=== PATIENT | female | born 1995 | race Caucasian/White ===

== ENCOUNTER 2016-12-16 17:47 | Emergency (ER) | payer MEDICAID, OTHER ==
[2016-12-16 18:13] VITALS: BP 112/50
[2016-12-16] MEDS ORDERED: Ondansetron INJ* 2 MG/ML VIAL IV ONE (18:20)
[2016-12-16] MEDS ORDERED: NS 0.9% 1000 ML* 1,000 ML IV ONE (18:20)
[2016-12-16 18:59] LABS: Hematocrit 38 % (35-47); Hemoglobin 12.8 g/dl (12.0-16.0); Mean Corpuscular HGB Conc 34 g/dl (31-36); Mean Corpuscular Hemoglobin 30 pg (27-31); Mean Corpuscular Volume 88 fL (80-97); Mean Platelet Volume 9 um3 (7.4-10.4); Red Blood Count 4.27 10^6/ul (4.0-5.4); Red Cell Distribution Width 14 % (10.5-15); White Blood Count 9.3 10^3/ul (3.5-10.8)
[2016-12-16 19:16] LABS: Albumin 3.9 g/dL (3.2-5.2); BUN/Creatinine Ratio 10.5 (8-20); EGFR African American 173.9 (>60); EGFR Non-African American 135.2 (>60); Globulin 2.8 g/dL (2-4); Potassium 3.2 mmol/L (3.5-5.0); Total Bilirubin 0.3 mg/dL (0.2-1.0); Total Protein 6.7 g/dL (6.4-8.9)
[2016-12-16 20:31] LABS: Urine Bacteria Absent (Absent); Urine Bilirubin Negative (Negative); Urine Glucose Negative (Negative); Urine Nitrite Negative (Negative)
--- NOTE | 2016-12-16 22:27 | RAD ---
Indication: abdominal cramping. COMPARISON: There are no prior studies available for comparison. TECHNIQUE: Multiple real-time transvaginal images of the pelvis were obtained. FINDINGS: The uterus is retroverted and normal in size. This exam demonstrates an early intrauterine . A fetus and yolk sac are visualized. The heart rate was 181 beats per minute. The crown-rump length measured 2.6 cm corresponding to an estimated gestational age of 9 weeks 3 days. The mean sac diameter measured 3.3 cm corresponding to an estimate gestational age of 8 weeks 5 days. The right ovary measured 2.6 x 2.2 x 2.0 cm. The left ovary measured 2.1 x 1.2 x 2.5 cm. There is vascular flow within both ovaries. There is a small complex cyst present within the right ovary measuring 1.5 x 1.0 cm in size. No free intraperitoneal fluid is seen. IMPRESSION: EARLY INTRAUTERINE WITH AN ESTIMATED GESTATIONAL AGE OF 9 WEEKS 3 DAYS BY CROWN-RUMP LENGTH.
[2016-12-16] MEDS ORDERED: Potassium Chlor TAB* 20 MEQ TAB.ER PO ONE (22:30)
--- NOTE | 2016-12-16 22:43 | ED ---
Mateo Tai Billy, scribed for Will Bender MD on 12/16/16 at 1815 . Abdominal Pain/Female - HPI Summary HPI Summary: Patient is a 21 year-old female coming to [facility] presenting with constant abdominal cramping and intermittent N/V for one week. Denies any vaginal bleeding or discharge. She is 9 weeks , A0. Patient reports 5x episodes of emesis today and saw blood in the vomit. She states that she had a Mirena IUD in place, but she reports that it was not visualized on ultrasound done yesterday at [facility]. - History of Current Complaint Chief Complaint: EDAbdPain Stated Complaint: ABD PAIN,VOMITING BLOOD Time Seen by Provider: 12/16/16 18:12 Hx Obtained From: Patient Onset/Duration: Gradual Onset, Lasting Days, Still Present Timing: Constant Severity Initially: Moderate Severity Currently: Moderate Pain Intensity: 6 Pain Scale Used: 0-10 Numeric Radiates: No Aggravating Factor(s): Nothing Alleviating Factor(s): Nothing Associated Signs and Symptoms: Positive: Nausea, Vomiting. Negative: Vaginal Bleeding, Vaginal Discharge Allergies/Adverse Reactions: Allergies Allergy/AdvReac Type Severity Reaction Status Date / Time No Known Allergies Allergy Verified 08/11/15 20:40 PMH/Surg Hx/FS Hx/Imm Hx Endocrine/Hematology History: Denies: Hx Diabetes Cardiovascular History: Denies: Hx Hypertension Infectious Disease History: No Infectious Disease History: Denies: Traveled Outside the [place] in Last 30 Days - Family History Known Family History: Negative: Cardiac Disease, Hypertension, Diabetes - Social History Alcohol Use: None Substance Use Type: Reports: None Substance Use Comment - Amount & Last Used: none noted by pt or noted upon admission Smoking Status (MU): Never Smoked Tobacco Have You Smoked in the Last Year: No Review of Systems Negative: Fever Positive: Abdominal Pain, Vomiting, Nausea Negative: discharge All Other Systems Reviewed And Are Negative: Yes Physical Exam - Summary Physical Exam Summary: VITAL SIGNS: Reviewed. GENERAL: Patient is a well developed and nourished female who is lying comfortable in the stretcher. Patient is not in any acute respiratory distress. HEAD AND FACE: Normocephalic and atraumatic. EYES: PERRLA, EOMI x 2, No injected conjunctiva. EARS: Hearing grossly intact. Ear canals and tympanic membranes are WNL. MOUTH: Oropharynx within normal limits. NECK: Supple, trachea is midline, no adenopathy, no JVD. CHEST: Symmetric, no tenderness at palpation LUNGS: Clear to auscultation bilaterally. No wheezing or crackles. CVS: RRR,, S1 and S2 present, no murmurs or gallops appreciated. ABDOMEN: Soft, non-tender. No signs of distention. Positive bowel sounds. No rebound no guarding, and no masses palpated. No abdominal bruit or pulsations. EXTREMITIES: FROM in all major joints, no edema, no cyanosis or clubbing. NEURO: Alert and oriented x 3. No acute neurological deficits. Speech is normal. SKIN: Dry and warm Triage Information Reviewed: Yes Vital Signs On Initial Exam: Initial Vitals Temp Pulse Resp BP Pulse Ox 99.7 F 77 18 112/50 98 12/16/16 18:11 12/16/16 18:11 12/16/16 18:11 12/16/16 18:11 12/16/16 18:11 Vital Signs Reviewed: Yes Diagnostics - Vital Signs Vital Signs Temp Pulse Resp BP Pulse Ox 12/16/16 18:11 99.7 F 77 18 112/50 98 - Laboratory Lab Results: Lab Results 12/16/16 12/16/16 12/16/16 Range/Units 18:45 18:45 18:45 WBC 9.3 (3.5-10.8) 10^3/ul RBC 4.27 (4.0-5.4) 10^6/ul Hgb 12.8 (12.0-16.0) g/dl Hct 38 (35-47) % MCV 88 (80-97) fL MCH 30 (27-31) pg MCHC 34 (31-36) g/dl RDW 14 (10.5-15) % Plt Count 201 (150-450) 10^3/ul MPV 9 (7.4-10.4) um3 Neut % (Auto) 75.3 (38-83) % Lymph % (Auto) 15.0 L (25-47) % [place] % (Auto) 8.6 (1-9) % Eos % (Auto) 0.7 (0-6) % Baso % (Auto) 0.4 (0-2) % Absolute Neuts (auto) 7.0 (1.5-7.7) 10^3/ul Absolute Lymphs (auto) 1.4 (1.0-4.8) 10^3/ul Absolute Monos (auto) 0.8 (0-0.8) 10^3/ul Absolute Eos (auto) 0.1 (0-0.6) 10^3/ul Absolute Basos (auto) 0 (0-0.2) 10^3/ul Absolute Nucleated RBC 0 10^3/ul Nucleated RBC % 0 Sodium 134 (133-145) mmol/L Potassium 3.2 L (3.5-5.0) mmol/L Chloride 105 (101-111) mmol/L Carbon Dioxide 22 (22-32) mmol/L Anion Gap 7 (2-11) mmol/L BUN 6 (6-24) mg/dL Creatinine 0.57 (0.51-0.95) mg/dL Est GFR ( Amer) 173.9 (>60) Est GFR (Non-Af Amer) 135.2 (>60) BUN/Creatinine Ratio 10.5 (8-20) Glucose 85 (70-100) mg/dL Calcium 9.0 (8.6-10.3) mg/dL Total Bilirubin 0.30 (0.2-1.0) mg/dL AST 14 (13-39) U/L ALT 14 (7-52) U/L Alkaline Phosphatase 37 (34-104) U/L C-Reactive Protein 4.00 (< 5.00) mg/L Total Protein 6.7 (6.4-8.9) g/dL Albumin 3.9 (3.2-5.2) g/dL Globulin 2.8 (2-4) g/dL Albumin/Globulin Ratio 1.4 (1-3) Amylase 47 (29-103) U/L Lipase 24 (11.0-82.0) U/L Beta HCG, Quant 14092.00 mIU/mL Urine Color Urine Appearance Urine pH (5-9) Ur Specific [place] (1.010-1.030) Urine Protein (Negative) Urine Ketones (Negative) Urine Blood (Negative) Urine Nitrate (Negative) Urine Bilirubin (Negative) Urine Urobilinogen (Negative) Ur Leukocyte Esterase (Negative) Urine WBC (Auto) (Absent) Urine RBC (Auto) (Absent) Ur Squamous Epith Cells (Absent) Urine Bacteria (Absent) Urine Glucose (Negative) Blood Type A Positive 12/16/16 Range/Units 20:12 WBC (3.5-10.8) 10^3/ul RBC (4.0-5.4) 10^6/ul Hgb (12.0-16.0) g/dl Hct (35-47) % MCV (80-97) fL MCH (27-31) pg MCHC (31-36) g/dl RDW (10.5-15) % Plt Count (150-450) 10^3/ul MPV (7.4-10.4) um3 Neut % (Auto) (38-83) % Lymph % (Auto) (25-47) % [place] % (Auto) (1-9) % Eos % (Auto) (0-6) % Baso % (Auto) (0-2) % Absolute Neuts (auto) (1.5-7.7) 10^3/ul Absolute Lymphs (auto) (1.0-4.8) 10^3/ul Absolute Monos (auto) (0-0.8) 10^3/ul Absolute Eos (auto) (0-0.6) 10^3/ul Absolute Basos (auto) (0-0.2) 10^3/ul Absolute Nucleated RBC 10^3/ul Nucleated RBC % Sodium (133-145) mmol/L Potassium (3.5-5.0) mmol/L Chloride (101-111) mmol/L Carbon Dioxide (22-32) mmol/L Anion Gap (2-11) mmol/L BUN (6-24) mg/dL Creatinine (0.51-0.95) mg/dL Est GFR ( Amer) (>60) Est GFR (Non-Af Amer) (>60) BUN/Creatinine Ratio (8-20) Glucose (70-100) mg/dL Calcium (8.6-10.3) mg/dL Total Bilirubin (0.2-1.0) mg/dL AST (13-39) U/L ALT (7-52) U/L Alkaline Phosphatase (34-104) U/L C-Reactive Protein (< 5.00) mg/L Total Protein (6.4-8.9) g/dL Albumin (3.2-5.2) g/dL Globulin (2-4) g/dL Albumin/Globulin Ratio (1-3) Amylase (29-103) U/L Lipase (11.0-82.0) U/L Beta HCG, Quant mIU/mL Urine Color Yellow Urine Appearance Clear Urine pH 6.0 (5-9) Ur Specific [place] 1.015 (1.010-1.030) Urine Protein Negative (Negative) Urine Ketones 2+ H (Negative) Urine Blood Negative (Negative) Urine Nitrate Negative (Negative) Urine Bilirubin Negative (Negative) Urine Urobilinogen Negative (Negative) Ur Leukocyte Esterase Trace H (Negative) Urine WBC (Auto) Trace(0-5/hpf) (Absent) Urine RBC (Auto) Trace(0-2/hpf) (Absent) Ur Squamous Epith Cells Present H (Absent) Urine Bacteria Absent (Absent) Urine Glucose Negative (Negative) Blood Type Result Diagrams: 12/16/16 18:45 12/16/16 18:45 Lab Statement: Any lab studies that have been ordered have been reviewed, and results considered in the medical decision making process. - Ultrasound No standard instances Ultrasound Interpretation Completed By: Radiologist - US: EARLY INTRAUTERINE WITH AN ESTIMATED GESTATIONAL AGE OF 9 WEEKS 3 DAYS BY CROWN-RUMP LENGTH. Abdominal Pain Fem Course/Dx - Course Course Of Treatment: Patient is a 21 year-old female coming to [facility] presenting with constant abdominal cramping and intermittent N/V for one week. Denies any vaginal bleeding or discharge. She is 9 weeks , A0. Patient reports 5x episodes of emesis today and saw blood in the vomit. She states that she had a Mirena IUD in place, but she reports that it was not visualized on ultrasound done yesterday at [facility]. Bloodwork WNL except for potassium of 3.2. The patient was given potassium chloride. We were not able to obtain results from U/S at [facility] therfore I decided to do an U/S today. US reports early intrauterine at 9 weeks and 3 days. Patient declined pelvic exam. In the ER course, the patient was given IV fluids and Zofran for N/ V. After these meds, the sx resolved. Pt tolerates PO. Therefore she will be d/ c home to f/u with PCP and [facility]. - Diagnoses Differential Diagnosis: Positive: Constipation, Ectopic , , Urinary Tract Infection Provider Diagnoses: Nausea and vomiting during Discharge - Discharge Plan Condition: Stable Disposition: HOME Prescriptions: Doxylamine/Pyridoxine(NF) [Diclegis (NF)] 1 tab PO BID PRN #20 tab PRN Reason: Vomiting Patient Education Materials: Nausea and Vomiting in (ED) Referrals: No Primary Care Phys,NOPCP [Primary Care Provider] - The documentation as recorded by the Mateo archer Billy accurately reflects the service I personally performed and the decisions made by me, Will Bender MD.
== END 2016-12-16 23:29 | disposition home or self-care (01) ==
LOC: ED 17:47
DX: O21.0 Mild hyperemesis gravidarum (principal); Z3A.09 9 weeks gestation of pregnancy
CPT/HCPCS: 36415; 76801; 80053; 81003; 81015; 82150; 83690; 84702; 85025; 86140; 86900; 86901; 87086; 96360; 96374; 99282; A9270-GY; J2405

== ENCOUNTER 2017-01-24 21:24 | Emergency (ER) | payer MEDICAID, OTHER ==
[2017-01-24] MEDS ORDERED: NS 0.9% 1000 ML* 1,000 ML IV ONE (21:32)
[2017-01-24] MEDS ORDERED: Acetaminophen TAB* 325 MG PO ONE (21:32)
[2017-01-24 22:06] LABS: Hematocrit 35 % (35-47); Hemoglobin 12.1 g/dl (12.0-16.0); Mean Corpuscular HGB Conc 35 g/dl (31-36); Mean Corpuscular Hemoglobin 31 pg (27-31); Mean Corpuscular Volume 90 fL (80-97); Mean Platelet Volume 9 um3 (7.4-10.4); Red Blood Count 3.88 10^6/ul (4.0-5.4); Red Cell Distribution Width 15 % (10.5-15); White Blood Count 13.1 10^3/ul (3.5-10.8)
[2017-01-24 22:19] LABS: Albumin 3.5 g/dL (3.2-5.2); BUN/Creatinine Ratio 10.8 (8-20); Calcium 8.9 mg/dL (8.6-10.3); EGFR African American 149.4 (>60); EGFR Non-African American 116.2 (>60); Globulin 3.1 g/dL (2-4); Potassium 3.4 mmol/L (3.5-5.0); Total Bilirubin 0.2 mg/dL (0.2-1.0); Total Protein 6.6 g/dL (6.4-8.9)
[2017-01-25 00:22] LABS: Urine Bilirubin Negative (Negative); Urine Glucose Negative (Negative); Urine Nitrite Negative (Negative)
[2017-01-25 00:29] VITALS: BP 132/67
--- NOTE | 2017-01-25 07:58 | RAD ---
INDICATION: Bleeding and pelvic cramping Comparison: Similar pelvic ultrasound dated December 16, 2016 that yielded a gestational age of 9 weeks and 3 days Multiple transabdominal real time images of the gravid uterus were obtained. This exam demonstrates a single intrauterine in a variable presentation. heart and limb motion were noted. The heart rate was 147 beats per minute. The placenta was located anterior. At the anterior margin of the junction of the placenta and uterine wall there is a focal hypoechoic area with vascularity. According to the business area director note this area was reduced towards the end of the examination compared to the earlier portion. There is no placenta previa. The amniotic fluid volume appeared to be within normal limits. Biparietal diameter (cm) 2.93 which corresponds to a gestational age of 15 weeks and 3 days. Head circumference (cm) 11.38 which corresponds to a gestational age of 15 weeks and 4 days. abdominal circumference(cm) 9.25 which corresponds to a gestational age of 15 weeks and 3 days. femur length (cm) 1.75 which corresponds to a gestational age of 15 weeks and 2 days. The composite estimated gestational age was 15 weeks and 3 days. The estimated weight at this time is 121 grams +/- 18 grams. IMPRESSION: 1. Single live intrauterine gestation with composite growth parameters yielding an average gestational age of 15 weeks and 3 days. 2. At the anterior margin of the placenta there is a vascular and hypoechoic area that, according to the business area director note, reduced in size in the course of the ultrasound examination indicating a focal area of uterine contraction as opposed to placental abruption. The latter is not totally excluded and close clinical and sonographic follow-up is advised.
--- NOTE | 2017-01-25 16:52 | ED ---
- HPI Summary HPI Summary: Patient is a 15 week female BECKY who arrives to ED with CC of light vaginal bleeding since this morning. She is concerned of a threatened and would like an US. Patient notes to "spotting" up to soaking through a pad. She is with AB1 and has never had this with her previous pregnancies. She c/o of no tenderness around the abdomen except for light cramping earlier today. Denies fever, other vaginal discharge, chest pressure or SOB. Patient notes small clots of what looks like tissue as well as BRB. Denies back pain or urinary symptoms. Patient stable on arrival. blood type A+. She has not established on OBGYN yet, but last US 2 weeks ago showed viable IUP. - History of Current Complaint Chief Complaint: EDOBProblems Stated Complaint: ABD PAIN/BLEEDING/15 WKS PREG Time Seen by Provider: 01/24/17 21:28 Hx Obtained From: Patient Chief Complaint: Concern for Embryonic Dem, Concern for Demise, Vaginal Bleeding Onset/Duration: Started Hours Ago Timing: Intermittent Severity: Moderate Current Severity: Mild Pain Intensity: 1 Location of Pain: None Character: None Aggravating Factors: Nothing, Other: Associated Signs and Symptoms: Positive: Negative - Assessment SAB: 1 IEA: 0 Hx Hysterectomy: No - Risk Factors Ectopic Risk Factor: Negative Ovarian Torsion Risk Factor: Reproductive Age - Additional Pertinent History Maternal Blood Type and Rh: A Positive - Allergies/Home Medications Allergies/Adverse Reactions: Allergies Allergy/AdvReac Type Severity Reaction Status Date / Time No Known Allergies Allergy Verified 08/11/15 20:40 PMH/Surg Hx/FS Hx/Imm Hx Previously Healthy: Yes Endocrine/Hematology History: Denies: Hx Diabetes Cardiovascular History: Denies: Hx Hypertension Infectious Disease History: No Infectious Disease History: Denies: Traveled Outside the [place] in Last 30 Days - Family History Known Family History: Negative: Cardiac Disease, Hypertension, Diabetes - Social History Occupation: Unemployed Lives: With Family Alcohol Use: None Hx Substance Use: No Substance Use Type: Reports: None Substance Use Comment - Amount & Last Used: none noted by pt or noted upon admission Hx Tobacco Use: No Smoking Status (MU): Never Smoked Tobacco Have You Smoked in the Last Year: No Review of Systems Constitutional: Negative Eyes: Negative Cardiovascular: Negative Respiratory: Negative Positive: Abdominal Pain - light cramping now dissipated Positive: no symptoms reported, see HPI, discharge - vaginal bleeding Musculoskeletal: Negative Neurological: Negative Positive: Anxious All Other Systems Reviewed And Are Negative: Yes Physical Exam - Physical Exam Triage Information Reviewed: Yes Vital Signs Reviewed: Yes Appearance: Positive: Well-Appearing, No Pain Distress, Well-Nourished Skin: Positive: Warm, Skin Color Reflects Adequate Perfusion Head/Face: Positive: Normal Head/Face Inspection Eyes: Positive: EOMI, Conjunctiva Clear Neck: Positive: Supple, No Lymphadenopathy Respiratory/Lung Sounds: Positive: Clear to Auscultation Cardiovascular: Positive: Normal Abdomen Description: Positive: Nontender, Soft Bowel Sounds: Positive: Present Musculoskeletal: Positive: Normal, Strength/ROM Intact Psychiatric: Positive: Normal AVPU Assessment: Alert - Vaginal Assessment Presentation Comment: unable to reach cervix Procedures - Ultrasound Ultrasound: normal Diagnostics - Vital Signs Vital Signs Temp Pulse Resp BP Pulse Ox 01/25/17 00:27 99.1 F 92 18 132/67 01/24/17 23:00 87 20 105/67 98 01/24/17 21:41 99.7 F 85 22 116/93 99 - Laboratory Lab Results: Lab Results 01/24/17 01/24/17 01/24/17 Range/Units 21:55 21:55 21:55 WBC 13.1 H (3.5-10.8) 10^3/ul RBC 3.88 L (4.0-5.4) 10^6/ul Hgb 12.1 (12.0-16.0) g/dl Hct 35 (35-47) % MCV 90 (80-97) fL MCH 31 (27-31) pg MCHC 35 (31-36) g/dl RDW 15 (10.5-15) % Plt Count 201 (150-450) 10^3/ul MPV 9 (7.4-10.4) um3 Neut % (Auto) 79.0 (38-83) % Lymph % (Auto) 13.3 L (25-47) % [place] % (Auto) 6.2 (1-9) % Eos % (Auto) 0.7 (0-6) % Baso % (Auto) 0.8 (0-2) % Absolute Neuts (auto) 10.3 H (1.5-7.7) 10^3/ul Absolute Lymphs (auto) 1.7 (1.0-4.8) 10^3/ul Absolute Monos (auto) 0.8 (0-0.8) 10^3/ul Absolute Eos (auto) 0.1 (0-0.6) 10^3/ul Absolute Basos (auto) 0.1 (0-0.2) 10^3/ul Absolute Nucleated RBC 0.01 10^3/ul Nucleated RBC % 0 Sodium 133 (133-145) mmol/L Potassium 3.4 L (3.5-5.0) mmol/L Chloride 104 (101-111) mmol/L Carbon Dioxide 25 (22-32) mmol/L Anion Gap 4 (2-11) mmol/L BUN 7 (6-24) mg/dL Creatinine 0.65 (0.51-0.95) mg/dL Est GFR ( Amer) 149.4 (>60) Est GFR (Non-Af Amer) 116.2 (>60) BUN/Creatinine Ratio 10.8 (8-20) Glucose 93 (70-100) mg/dL Calcium 8.9 (8.6-10.3) mg/dL Total Bilirubin 0.20 (0.2-1.0) mg/dL AST 12 L (13-39) U/L ALT 17 (7-52) U/L Alkaline Phosphatase 56 (34-104) U/L Total Protein 6.6 (6.4-8.9) g/dL Albumin 3.5 (3.2-5.2) g/dL Globulin 3.1 (2-4) g/dL Albumin/Globulin Ratio 1.1 (1-3) Beta HCG, Quant 38927.00 mIU/mL Urine Color Urine Appearance Urine pH (5-9) Ur Specific [place] (1.010-1.030) Urine Protein (Negative) Urine Ketones (Negative) Urine Blood (Negative) Urine Nitrate (Negative) Urine Bilirubin (Negative) Urine Urobilinogen (Negative) Ur Leukocyte Esterase (Negative) Urine Glucose (Negative) Blood Type A Positive Antibody Screen Negative 01/24/17 Range/Units 23:33 WBC (3.5-10.8) 10^3/ul RBC (4.0-5.4) 10^6/ul Hgb (12.0-16.0) g/dl Hct (35-47) % MCV (80-97) fL MCH (27-31) pg MCHC (31-36) g/dl RDW (10.5-15) % Plt Count (150-450) 10^3/ul MPV (7.4-10.4) um3 Neut % (Auto) (38-83) % Lymph % (Auto) (25-47) % [place] % (Auto) (1-9) % Eos % (Auto) (0-6) % Baso % (Auto) (0-2) % Absolute Neuts (auto) (1.5-7.7) 10^3/ul Absolute Lymphs (auto) (1.0-4.8) 10^3/ul Absolute Monos (auto) (0-0.8) 10^3/ul Absolute Eos (auto) (0-0.6) 10^3/ul Absolute Basos (auto) (0-0.2) 10^3/ul Absolute Nucleated RBC 10^3/ul Nucleated RBC % Sodium (133-145) mmol/L Potassium (3.5-5.0) mmol/L Chloride (101-111) mmol/L Carbon Dioxide (22-32) mmol/L Anion Gap (2-11) mmol/L BUN (6-24) mg/dL Creatinine (0.51-0.95) mg/dL Est GFR ( Amer) (>60) Est GFR (Non-Af Amer) (>60) BUN/Creatinine Ratio (8-20) Glucose (70-100) mg/dL Calcium (8.6-10.3) mg/dL Total Bilirubin (0.2-1.0) mg/dL AST (13-39) U/L ALT (7-52) U/L Alkaline Phosphatase (34-104) U/L Total Protein (6.4-8.9) g/dL Albumin (3.2-5.2) g/dL Globulin (2-4) g/dL Albumin/Globulin Ratio (1-3) Beta HCG, Quant mIU/mL Urine Color Yellow Urine Appearance Clear Urine pH 7.0 (5-9) Ur Specific [place] 1.013 (1.010-1.030) Urine Protein Negative (Negative) Urine Ketones Negative (Negative) Urine Blood Negative (Negative) Urine Nitrate Negative (Negative) Urine Bilirubin Negative (Negative) Urine Urobilinogen Negative (Negative) Ur Leukocyte Esterase Negative (Negative) Urine Glucose Negative (Negative) Blood Type Antibody Screen Result Diagrams: 01/24/17 21:55 01/24/17 21:55 Lab Statement: Any lab studies that have been ordered have been reviewed, and results considered in the medical decision making process. - Ultrasound No standard instances Ultrasound Interpretation: Positive (See Comments) - IMPRESSION: 1. Single live intrauterine gestation with composite growth parameters yielding an average gestational age of 15 weeks and 3 days. 2. At the anterior margin of the placenta there is a vascular and hypoechoic area that, according to the underwriting clerks supervisor note, reduced in size in the course of the ultrasound examination indicating a focal area of uterine contraction as opposed to placental abruption. The latter is not totally excluded and close clinical and sonographic follow-up is advised. Ultrasound Interpretation Completed By: Radiologist Course/Dx - Course Course Of Treatment: Transvaginal US ordered. Impressin: IMPRESSION: 1. Single live intrauterine gestation with composite growth parameters yielding an average gestational age of 15 weeks and 3 days. Patient made aware of results. Provider educated about return precautions and discussed bleeding through 1 pad per hour as a need to be re-evaluated. Patient has appt this week at clinic for follow up. Stable upon discharge and agrees with plan. - Differential Diagnosis/HQI/PQRI: Incomplete , Missed , Threatened , Early - Diagnoses Provider Diagnoses: Vaginal bleeding in Discharge - Discharge Plan Condition: Stable Disposition: HOME Referrals: No Primary Care Phys,NOPCP [Primary Care Provider] - Additional Instructions: Follow up with your OBGYN this week. US shows gestational age 15 weeks and 3 days. If you develop fever, heavy vaginal bleeding soaking through 1 pad per hour, come back to ED.
== END 2017-01-25 00:27 | disposition home or self-care (01) ==
LOC: ED 21:24
DX: O46.92 Antepartum hemorrhage, unspecified, second trimester (principal); R10.9 Unspecified abdominal pain; F41.9 Anxiety disorder, unspecified; Z3A.15 15 weeks gestation of pregnancy
CPT/HCPCS: 36415; 76805; 80053; 81003; 84702; 85025; 86850; 86900; 86901; 99282; A9270-GY

== ENCOUNTER 2017-02-25 19:07 | Emergency (ER) | payer OTHER ==
--- NOTE | 2017-02-25 20:12 | ED ---
sharon Tai Timothy, scribed for Liang Lacy MD on 02/25/17 at 1958 . GI/ HPI - HPI Summary HPI Summary: Yesy Suarez is a 21 yo female presenting to [facility] with spotting, clots, dizziness, and 8/10 chest pain since 0900 this morning, increasing throughout the day in intensity. She is 20 weeks . Her MHx includes . - History of Current Complaint Chief Complaint: EDChestPainROMI Time Seen by Provider: 02/25/17 19:54 Stated Complaint: CHEST PAIN/ 20 WEEK PREG/BLEEDING Hx Obtained From: Patient Onset/Duration: Started Hours Ago, Still Present Timing: Constant Severity: Moderate Current Severity: Moderate Vaginal Bleeding Description: Bright Red Pain Intensity: 8 Location of Pain: Diffuse Associated Signs and Symptoms: Positive: Chest Pain, Other: - dizziness Additional Signs & Symptoms: Positive: Vaginal Bleeding - with clots - Allergy/Home Medications Allergies/Adverse Reactions: Allergies Allergy/AdvReac Type Severity Reaction Status Date / Time No Known Allergies Allergy Verified 02/25/17 19:23 PMH/Surg Hx/FS Hx/Imm Hx Endocrine/Hematology History: Denies: Hx Diabetes Cardiovascular History: Denies: Hx Hypertension - Immunization History Date of Tetanus Vaccine: utd Date of Influenza Vaccine: utd Infectious Disease History: No Infectious Disease History: Denies: Traveled Outside the [place] in Last 30 Days - Family History Known Family History: Negative: Cardiac Disease, Hypertension, Diabetes, Blood Disorder - Social History Alcohol Use: Rare Hx Substance Use: No Substance Use Type: Reports: None Substance Use Comment - Amount & Last Used: none noted by pt or noted upon admission Hx Tobacco Use: No Smoking Status (MU): Never Smoked Tobacco Have You Smoked in the Last Year: No Review of Systems Constitutional: Negative Eyes: Negative ENT: Negative Positive: Chest Pain Respiratory: Negative Gastrointestinal: Negative Genitourinary: Other - vaginal bleeding with clots Musculoskeletal: Negative Skin: Negative Neurological: Other - dizziness Psychological: Normal All Other Systems Reviewed And Are Negative: Yes Physical Exam Triage Information Reviewed: Yes Vital Signs On Initial Exam: Initial Vitals Temp Pulse Resp BP Pulse Ox 99.3 F 71 16 115/61 98 02/25/17 19:09 02/25/17 19:09 02/25/17 19:09 02/25/17 19:09 02/25/17 19:09 Vital Signs Reviewed: Yes Appearance: Positive: Well-Appearing, No Pain Distress Skin: Positive: Warm Head/Face: Positive: Normal Head/Face Inspection Eyes: Positive: RAULITO ENT: Positive: Normal ENT inspection Neck: Positive: Supple Respiratory/Lung Sounds: Positive: Clear to Auscultation, Breath Sounds Present Cardiovascular: Positive: RRR Abdomen Description: Positive: Nontender, Soft Bowel Sounds: Positive: Present Pelvic Exam: Positive: speculum exam normal. Negative: blood - cx closed Musculoskeletal: Positive: Strength/ROM Intact - [place] Coma Scale Coma Scale Total: 15 Diagnostics - Vital Signs Vital Signs Temp Pulse Resp BP Pulse Ox 02/25/17 19:09 99.3 F 71 16 115/61 98 - Laboratory Result Diagrams: 02/25/17 19:50 Lab Statement: Any lab studies that have been ordered have been reviewed, and results considered in the medical decision making process. - EKG 1933 Cardiac Rate: NL - 72 BPM EKG Interpretation: NSR @ 72 BPM, normal EKG. Re-Evaluation - Re-Evaluation First Eval Re-Evaluation Time: 21:04 Change: Improved Comment: Pt is informed of results of her lab work, and is agreeable with current course of treatment. GIGU Course/Dx - Course Assessment/Plan: Yesy Olsen is a 21 yo female presenting to [facility] with vaginal bleeding, dizziness, and chest pain starting today. She is 20 weeks . Her EKG was normal. Afte clinical examination and review of her EKG and lab work, she will be discharged with abdominal pain and with appropriate instructions. - Diagnoses Provider Diagnoses: Abdominal pain, - Additional Visit Information Is Visit Related: Yes Discharge - Discharge Plan Condition: Stable Disposition: HOME Patient Education Materials: Acute Abdominal Pain (ED), (ED) Referrals: No Primary Care Phys,NOPCP [Primary Care Provider] - [facility] [Provider Group] - 2 Days Additional Instructions: Please follow up with your [facility] regarding your visit to the emergency department today. Return to the emergency department with any new or recurring symptoms. The documentation as recorded by the sharon archer Timothy accurately reflects the service I personally performed and the decisions made by me, Liang Lacy MD.
[2017-02-25 20:21] LABS: Hematocrit 34 % (35-47); Hemoglobin 11.6 g/dl (12.0-16.0); Mean Corpuscular HGB Conc 34 g/dl (31-36); Mean Corpuscular Hemoglobin 32 pg (27-31); Mean Corpuscular Volume 92 fL (80-97); Mean Platelet Volume 9 um3 (7.4-10.4); Red Cell Distribution Width 15 % (10.5-15); White Blood Count 15.4 10^3/ul (3.5-10.8)
[2017-02-25 20:26] LABS: Urine Bacteria Absent (Absent); Urine Bilirubin Negative (Negative); Urine Glucose Negative (Negative); Urine Nitrite Negative (Negative)
[2017-02-25 21:47] VITALS: BP 111/66
== END 2017-02-25 21:47 | disposition home or self-care (01) ==
LOC: ED 19:07
DX: O26.892 Other specified pregnancy related conditions, second trimester (principal); Z3A.20 20 weeks gestation of pregnancy; R07.9 Chest pain, unspecified
CPT/HCPCS: 36415; 81003; 81015; 84702; 85025; 87086; 93005; 99282

== ENCOUNTER 2017-03-12 15:50 | Emergency (ER) | payer OTHER ==
[2017-03-12 18:15] LABS: Hematocrit 38 % (35-47); Hemoglobin 12.7 g/dl (12.0-16.0); Mean Corpuscular HGB Conc 34 g/dl (31-36); Mean Corpuscular Hemoglobin 32 pg (27-31); Mean Corpuscular Volume 94 fL (80-97); Mean Platelet Volume 9 um3 (7.4-10.4); Red Blood Count 4.02 10^6/ul (4.0-5.4); Red Cell Distribution Width 14 % (10.5-15); White Blood Count 18.3 10^3/ul (3.5-10.8)
[2017-03-12 18:29] LABS: Urine Bacteria Absent (Absent); Urine Bilirubin Negative (Negative); Urine Glucose Negative (Negative); Urine Nitrite Negative (Negative)
[2017-03-12] MEDS ORDERED: Ondansetron INJ* 2 MG/ML VIAL ONE (18:52)
[2017-03-12] MEDS ORDERED: Ondansetron INJ* 2 MG/ML VIAL IV ONE (18:53)
[2017-03-12] MEDS ORDERED: NS 0.9% 1000 ML* 2,000 ML IV ONE (18:53)
[2017-03-12 19:57] LABS: Albumin 3.7 g/dL (3.2-5.2); BUN/Creatinine Ratio 13.8 (8-20); Calcium 9.1 mg/dL (8.6-10.3); EGFR African American 149.4 (>60); EGFR Non-African American 116.2 (>60); Globulin 3.7 g/dL (2-4); Potassium 3.3 mmol/L (3.5-5.0); Total Bilirubin 0.4 mg/dL (0.2-1.0); Total Protein 7.4 g/dL (6.4-8.9)
[2017-03-12 21:14] VITALS: BP 115/60
--- NOTE | 2017-03-12 21:58 | ED ---
Anthony Tai Aidan, scribed for Valdez Choe MD on 03/12/17 at 1958 . - HPI Summary HPI Summary: 21 y/o female presents to the ED with a complaint of acute, constant, moderate ( 7/10) LLQ abdominal pain and episodes of vomiting over the past 2 days. Additionally, she has nausea and is not tolerating water. Pt is 22 weeks . She mentioned lessened movements since last night as well. This is her second and the baby is due on July 13. - History of Current Complaint Chief Complaint: EDNauseaVomitDiarrh Stated Complaint: 22WKS PREG/DIZZY, VOMITING Time Seen by Provider: 03/12/17 18:38 Hx Obtained From: Patient Chief Complaint: Other: - LLQ pain, vomiting, lessened movement, nausea, not tollerating water Onset/Duration: Started Days Ago, Still Present Timing: Constant - LLQ pain, Intermittent - vomiting Severity: Moderate Current Severity: Moderate Pain Intensity: 7 Location of Pain: Left Side - LLQ abdomen Character: Other: - undescribed Aggravating Factors: Other: - unknown, however, she is unable to tollerate water Alleviating Factors: Other: - unknown Associated Signs and Symptoms: Positive: Nausea, Vomiting, Other: - decreased movement since lsat night, nausea, vomiting, LLQ abd pain - Assessment Hx : 3 Hx Para: 1 SAB: 1 IEA: 0 Hx Hysterectomy: No - Additional Pertinent History Maternal Blood Type and Rh: A Positive - Allergies/Home Medications Allergies/Adverse Reactions: Allergies Allergy/AdvReac Type Severity Reaction Status Date / Time No Known Allergies Allergy Verified 03/12/17 18:39 PMH/Surg Hx/FS Hx/Imm Hx Endocrine/Hematology History: Denies: Hx Diabetes Cardiovascular History: Denies: Hx Hypertension - Immunization History Date of Tetanus Vaccine: utd Date of Influenza Vaccine: utd Infectious Disease History: No Infectious Disease History: Denies: Traveled Outside the [place] in Last 30 Days - Family History Known Family History: Negative: Cardiac Disease, Hypertension, Diabetes, Blood Disorder - Social History Occupation: Employed Full-time Lives: Alone Alcohol Use: Rare Hx Substance Use: No Substance Use Type: Reports: None Substance Use Comment - Amount & Last Used: none noted by pt or noted upon admission Hx Tobacco Use: No Smoking Status (MU): Never Smoked Tobacco Have You Smoked in the Last Year: No Review of Systems Constitutional: Negative Eyes: Negative ENT: Negative Cardiovascular: Negative Respiratory: Negative Positive: Abdominal Pain, Vomiting, Nausea. Negative: Diarrhea Genitourinary: Negative Musculoskeletal: Negative Skin: Negative Neurological: Negative Psychological: Normal All Other Systems Reviewed And Are Negative: Yes Physical Exam - Physical Exam Triage Information Reviewed: Yes Vital Signs On Initial Exam: Temp Pulse Resp BP SpO2 FiO2 98.3 F 74 18 100/41 99 03/12/17 18:37 03/12/17 19:30 03/12/17 18:37 03/12/17 19:30 03/12/17 19:30 Vital Signs Reviewed: Yes Appearance: Positive: Well-Appearing, No Pain Distress Skin: Positive: Warm, Skin Color Reflects Adequate Perfusion, Dry Head/Face: Positive: Normal Head/Face Inspection Eyes: Positive: Normal ENT: Positive: Normal ENT inspection Neck: Positive: Supple, Nontender Respiratory/Lung Sounds: Positive: Clear to Auscultation, Breath Sounds Present Cardiovascular: Positive: RRR Abdomen Description: Positive: Nontender, Soft Bowel Sounds: Positive: Present Musculoskeletal: Positive: Normal Neurological: Positive: Normal Psychiatric: Positive: Affect/Mood Appropriate - Vaginal Assessment Presentation Comment: unable to reach cervix Diagnostics - Vital Signs Vital Signs Temp Pulse Resp BP Pulse Ox 03/12/17 19:30 74 100/41 99 03/12/17 19:28 66 100 03/12/17 19:26 85/69 03/12/17 18:37 98.3 F 73 18 124/48 99 03/12/17 18:09 97.5 F 93 17 105/54 100 03/12/17 16:59 97.7 F 78 16 102/42 100 03/12/17 15:52 98.3 F 97 20 111/57 100 - Laboratory Lab Results: Lab Results 03/12/17 03/12/17 03/12/17 Range/Units 17:57 17:57 17:57 WBC 18.3 H (3.5-10.8) 10^3/ul RBC 4.02 (4.0-5.4) 10^6/ul Hgb 12.7 (12.0-16.0) g/dl Hct 38 (35-47) % MCV 94 (80-97) fL MCH 32 H (27-31) pg MCHC 34 (31-36) g/dl RDW 14 (10.5-15) % Plt Count 234 (150-450) 10^3/ul MPV 9 (7.4-10.4) um3 Neut % (Auto) 78.7 (38-83) % Lymph % (Auto) 15.6 L (25-47) % Major % (Auto) 4.5 (1-9) % Eos % (Auto) 0.6 (0-6) % Baso % (Auto) 0.6 (0-2) % Absolute Neuts (auto) 14.4 H (1.5-7.7) 10^3/ul Absolute Lymphs (auto) 2.9 (1.0-4.8) 10^3/ul Absolute Monos (auto) 0.8 (0-0.8) 10^3/ul Absolute Eos (auto) 0.1 (0-0.6) 10^3/ul Absolute Basos (auto) 0.1 (0-0.2) 10^3/ul Absolute Nucleated RBC 0.02 10^3/ul Nucleated RBC % 0.1 Lactic Acid 0.5 (0.5-2.0) mmol/L Urine Color Yellow Urine Appearance Clear Urine pH 5.0 (5-9) Ur Specific [place] 1.027 (1.010-1.030) Urine Protein Negative (Negative) Urine Ketones 1+ H (Negative) Urine Blood Negative (Negative) Urine Nitrate Negative (Negative) Urine Bilirubin Negative (Negative) Urine Urobilinogen Negative (Negative) Ur Leukocyte Esterase Trace H (Negative) Urine WBC (Auto) Trace(0-5/hpf) (Absent) Urine RBC (Auto) Trace(0-2/hpf) (Absent) Ur Squamous Epith Cells Present H (Absent) Urine Bacteria Absent (Absent) Hyaline Casts Present H (Absent) Urine Glucose Negative (Negative) Urine Ascorbic Acid * H (Negative) Result Diagrams: 03/12/17 17:57 03/12/17 17:57 Lab Statement: Any lab studies that have been ordered have been reviewed, and results considered in the medical decision making process. Course/Dx - Course Course Of Treatment: This is a 21 y/o female who is 22 weeks presenting with LLQ abdominal pain, nausea, and vomiting. She was rehydrated here in the ED and her nausea was treated with zofran. FHT's were good and she was feeling the baby move again. She had a mild leukocytosis that I attribute to and vomiting. - Diagnoses Provider Diagnoses: Nausea & vomiting Discharge - Discharge Plan Condition: Stable Disposition: HOME Discharge Disposition Comment: Please follow up with your primary care physician within 3 days. Prescriptions: Ondansetron ODT TAB* [Zofran Odt TAB*] 4 mg PO Q6H PRN #20 tab.odt PRN Reason: Nausea/Vomiting Patient Education Materials: Nausea and Vomiting in (ED) Referrals: No Primary Care Phys,NOPCP [Primary Care Provider] - The documentation as recorded by the Anthony archer Aidan accurately reflects the service I personally performed and the decisions made by me, Valdez Choe MD.
== END 2017-03-12 21:12 | disposition home or self-care (01) ==
LOC: ED 15:50
DX: R10.32 Left lower quadrant pain (principal); R11.2 Nausea with vomiting, unspecified
CPT/HCPCS: 36415; 80053; 81003; 81015; 83605; 85025; 86703; 87086; 96374; 96375; 99283; J2405

== ENCOUNTER 2017-07-08 07:38 | Inpatient (IN) | payer OTHER ==
[2017-07-08 08:58] LABS: Hematocrit 35 % (35-47); Hemoglobin 11.8 g/dl (12.0-16.0); Mean Corpuscular HGB Conc 34 g/dl (31-36); Mean Corpuscular Hemoglobin 31 pg (27-31); Mean Corpuscular Volume 91 fL (80-97); Mean Platelet Volume 9 um3 (7.4-10.4); Red Blood Count 3.82 10^6/ul (4.0-5.4); Red Cell Distribution Width 15 % (10.5-15); White Blood Count 16.1 10^3/ul (3.5-10.8)
[2017-07-08] MEDS ORDERED: Oxytocin in LR* 20 UNITS/1,000 ML BAG IVPB SCH ×2 (09:00→19:00)
[2017-07-08 09:02] LABS: Add Diff/Slide Review? Slide Review Added; Comments Flag Yes
[2017-07-08 09:52] LABS: Immature Granulocytes 2 % (0-9); Metamyelocytes % 1 % (0-2); Neutrophil % 69 % (38-83)
[2017-07-08] MEDS ORDERED: OBEPIDURAL* 250 ML ONE (17:00)
[2017-07-08] MEDS ORDERED: Sodium Citrate/Citric Acid* 15 ML UDC PO PRN (17:32)
[2017-07-08] MEDS ORDERED: Phenylephrine IV* 40 MCG/ML 10 ML SYRINGE IV PUSH PRN ×2 (17:32)
[2017-07-08] MEDS ORDERED: OBEPIDURAL* 250 ML EPIDURAL SCH (18:00)
[2017-07-08] MEDS ORDERED: Dibucaine 1% 28.35 GM TUBE PR PRN (18:01)
[2017-07-08] MEDS ORDERED: Glycerin ADULT SUPP PR PRN (18:01)
[2017-07-08] MEDS ORDERED: Witch Hazel PAD* JAR TOPICAL PRN (18:01)
[2017-07-08] MEDS ORDERED: Ammonia Inhalant* 1 EA AMP ONE (19:47)
[2017-07-08] MEDS ORDERED: Simethicone CHEW TAB* 80 MG PO SCH (21:00)
[2017-07-08] MEDS: Docusate CAP* 100 MG PO SCH (22:06)
[2017-07-08] MEDS: Ibuprofen TAB* 600 MG PO PRN (22:07)
[2017-07-09] MEDS: Acetaminophen TAB* 325 MG PO PRN ×2 (00:17→20:13)
[2017-07-09] MEDS: Ibuprofen TAB* 600 MG PO PRN ×2 (03:47→16:31)
[2017-07-09] MEDS ORDERED: Ferrous Gluconate TAB* 324 MG TAB PO SCH (09:00)
[2017-07-09 10:18] LABS: Add Diff/Slide Review? Slide Review Added; Comments Flag Yes; Hematocrit 35 % (35-47); Hemoglobin 11.8 g/dl (12.0-16.0); Mean Corpuscular HGB Conc 34 g/dl (31-36); Mean Corpuscular Hemoglobin 31 pg (27-31); Mean Corpuscular Volume 91 fL (80-97); Mean Platelet Volume 9 um3 (7.4-10.4); Red Blood Count 3.82 10^6/ul (4.0-5.4); Red Cell Distribution Width 15 % (10.5-15)
[2017-07-09 12:07] LABS: Eosinophils % 1 % (0-6); Immature Granulocytes 2 % (0-9); Metamyelocytes % 1 % (0-2); Neutrophil % 80 % (38-83); RBC Morphology Normal (Normal)
[2017-07-09] MEDS: Docusate CAP* 100 MG PO SCH ×2 (15:05→15:06)
[2017-07-10] MEDS: Acetaminophen TAB* 325 MG PO PRN (06:56)
[2017-07-10 07:52] VITALS: BP 111/68
[2017-07-10] MEDS: Docusate CAP* 100 MG PO SCH (09:16)
== END 2017-07-10 13:48 | disposition home or self-care (01) | DRG 560 ==
LOC: MCHOBOUT 07:38 → MCHOB 07:50
PROVIDERS: ADMIT Midwife; ATTEND Midwife
PROC: 10E0XZZ Delivery of Products of Conception, External Approach (ICD-10-PCS; principal; 2017-07-08)
PROC: 3E033VJ Introduction of Other Hormone into Peripheral Vein, Percutaneous Approach (ICD-10-PCS; 2017-07-08)
PROC: 10907ZC Drainage of Amniotic Fluid, Therapeutic from Products of Conception, Via Natural or Artificial Opening (ICD-10-PCS; 2017-07-08)
DX: O99.824 Streptococcus B carrier state complicating childbirth (principal); O69.9XX0 Labor and delivery complicated by cord complication, unspecified, not applicable or unspecified; Z3A.39 39 weeks gestation of pregnancy; Z37.0 Single live birth
CPT/HCPCS: 36415; 85025; 86703; 86850; 86900; 86901; A9270-GY; J2540

== ENCOUNTER 2017-12-28 19:33 | Emergency (ER) | payer OTHER ==
[2017-12-28] MEDS ORDERED: NS 0.9% 1000 ML* 1,000 ML IV ONE (19:47)
[2017-12-28] MEDS ORDERED: Ketorolac INJ* 30 MG/ML 1 ML VIAL IV PUSH PRN (19:47)
[2017-12-28] MEDS ORDERED: Ketorolac INJ* 60 MG/2 ML VIAL ONE (21:52)
[2017-12-28] MEDS ORDERED: Ketorolac INJ* 60 MG/2 ML VIAL IM ONE (21:59)
[2017-12-28] MEDS ORDERED: Oseltamivir CAP* 75 MG CAP PO ONE (23:16)
--- NOTE | 2017-12-28 23:21 | ED ---
Gelacio Tai Thomas, scribed for Michelle Ruiz MD on 12/28/17 at 2013 . Complex/Multi-Sys Presentation - HPI Summary HPI Summary: The patient is a 22 year old female brought in by ambulance with lower abdominal pain and dysuria that began today. The patient was diagnosed with influenza earlier today, and over the last three days she has been dealing with fever, diarrhea, and nasal discharge. She complains of vaginal bleeding, although her LMP was four weeks ago. She denies vomiting. - History Of Current Complaint Chief Complaint: EDAbdPain Time Seen by Provider: 12/28/17 19:39 Hx Obtained From: Patient Onset/Duration: Lasting Days - 3, Still Present Timing: Constant Severity Initially: Moderate Location: Pain At: - lower abd Aggravating Factor(s): Voiding Alleviating Factor(s): None Associated Signs And Symptoms: Positive: Other - Lower abd pain, dysuria, fever , diarrhea, nasal discharge, vaginal bleeding; NEGATIVE: vomiting - Allergies/Home Medications Allergies/Adverse Reactions: Allergies Allergy/AdvReac Type Severity Reaction Status Date / Time No Known Allergies Allergy Verified 12/28/17 21:59 PMH/Surg Hx/FS Hx/Imm Hx Sensory History: Denies: Hx Legally Blind EENT History: Denies: Hx Deafness Infectious Disease History: No Infectious Disease History: Denies: Traveled Outside the [place] in Last 30 Days - Family History Known Family History: Positive: Other - Patient denies relevant FHx - Social History Alcohol Use: Occasionally Hx Substance Use: No Substance Use Type: Reports: None Hx Tobacco Use: Yes Smoking Status (MU): Current Every Day Smoker Review of Systems Positive: Fever Positive: Nasal Discharge Positive: Abdominal Pain - lower, Diarrhea. Negative: Vomiting Positive: dysuria, other - Vaginal bleeding All Other Systems Reviewed And Are Negative: Yes Physical Exam - Summary Physical Exam Summary: VITAL SIGNS: Reviewed. GENERAL:~Patient is a well-developed and nourished FEMALE who is lying comfortable in the stretcher. Patient is not in any acute respiratory distress. HEAD AND FACE: No signs of trauma. No ecchymosis, hematomas or skull depressions. No sinus tenderness. EYES: PERRLA, EOMI x 2, No injected conjunctiva, no nystagmus. EARS: Hearing grossly intact. Ear canals and tympanic membranes are within normal limits. MOUTH: Oropharynx within normal limits. NECK: Supple, trachea is midline, no adenopathy, no JVD, no carotid bruit, no c- spine tenderness, neck with full ROM. CHEST: Symmetric, no tenderness at palpation LUNGS: Clear to auscultation bilaterally. No wheezing or crackles. CVS: Regular rate and rhythm, S1 and S2 present, no murmurs or gallops appreciated. ABDOMEN: Soft. RLQ and LLQ tenderness. No signs of distention. No rebound no guarding, and no masses palpated. Bowel sounds are normal. BACK: Left CVA tenderness. EXTREMITIES: FROM in all major joints, no edema, no cyanosis or clubbing. NEURO: Alert and oriented x 3. No acute neurological deficits. Speech is normal and follows commands. SKIN: Dry and warm Triage Information Reviewed: Yes Vital Signs On Initial Exam: Initial Vitals Temp Pulse Resp BP Pulse Ox 98.9 F 108 20 102/87 100 12/28/17 19:43 12/28/17 19:43 12/28/17 19:43 12/28/17 19:43 12/28/17 19:43 Vital Signs Reviewed: Yes Diagnostics - Vital Signs Vital Signs Temp Pulse Resp BP Pulse Ox 12/28/17 19:43 98.9 F 108 20 102/87 100 - Laboratory Lab Statement: Any lab studies that have been ordered have been reviewed, and results considered in the medical decision making process. Complex Multi-Symp Course/Dx Assessment/Plan: The patient is a 22 year old female brought in by ambulance with lower abdominal pain and dysuria that began today. The patient was diagnosed with influenza earlier today, and over the last three days she has been dealing with fever, diarrhea, and nasal discharge. The patient was given Toradol and IV fluids. The patient does not want to wait for bloodwork or the CT Abdomen/Pelvis, so she will be discharged home. Influenza B is positive. The patient will be discharged home with primary care follow up. - Diagnoses Provider Diagnoses: Influenza B Discharge - Discharge Plan Condition: Stable Disposition: HOME Patient Education Materials: Influenza (DC) Referrals: [facility] [place] PHYSICIAN REFERRAL [Outside] - 3 Days Additional Instructions: Follow up with your primary care physician in three days. Return to the emergency department for any new or worsening symptoms. The documentation as recorded by the Gelacio archer Thomas accurately reflects the service I personally performed and the decisions made by Joseph courtney Abdul, MD.
[2017-12-29 01:06] VITALS: BP 0/0
== END 2017-12-29 | disposition home or self-care (01) ==
LOC: EDBD → ED 19:33 → MERGE 19:33 → ED 12-29
DX: J10.1 Influenza due to other identified influenza virus with other respiratory manifestations (principal); R10.30 Lower abdominal pain, unspecified; F17.200 Nicotine dependence, unspecified, uncomplicated
CPT/HCPCS: 87040; 87502; 96372; 96374; 99283; A9270-GY; J1885

== ENCOUNTER 2018-07-29 12:35 | Emergency (ER) | payer SELFPAY ==
[2018-07-29] MEDS ORDERED: NS 0.9% 1000 ML* 1,000 ML IV ONE (12:58)
[2018-07-29] MEDS ORDERED: Al Hydrox/Mg Hydrox/Simet LIQ* 30 ML UDC PO ONE (12:58)
[2018-07-29] MEDS ORDERED: Ondansetron INJ* 2 MG/ML VIAL IV ONE (12:58)
[2018-07-29] MEDS ORDERED: Lidocaine 2% VISCOUS* 15 ML UDC PO ONE (12:58)
[2018-07-29] MEDS ORDERED: Pantoprazole IV* 40 MG IV ONE (12:58)
--- NOTE | 2018-07-29 13:38 | ED ---
HPI Febrile Illness - HPI Summary HPI Summary: 22-year-old female presents with fever for the past week. She admits to a cough and sore throat. She denies any chest pain or shortness of breath. She states she has been taking ibuprofen every hour. She states that today she started to vomit and she admits to blood in her vomit. She denies any blood in her stool or dark tarry stool. She denies any history of GI bleeds. She admits to nausea and vomiting. She admits to decreased appetite. no medical conditions. no one else sick. was seen at urgent care and had negative strept there. - History of Current Complaint Chief Complaint: EDGeneral Time Seen by Provider: 07/29/18 12:40 Pain Intensity: 8 - Allergy/Home Medications Allergies/Adverse Reactions: Allergies Allergy/AdvReac Type Severity Reaction Status Date / Time No Known Allergies Allergy Verified 06/26/17 16:08 PMH/Surg Hx/FS Hx/Imm Hx Endocrine/Hematology History: Denies: Hx Diabetes Cardiovascular History: Denies: Hx Hypertension Sensory History: Denies: Hx Legally Blind, Hx Deafness Opthamlomology History: Denies: Hx Legally Blind - Immunization History Date of Tetanus Vaccine: utd Date of Influenza Vaccine: utd Immunizations Up to Date: Yes Infectious Disease History: No Infectious Disease History: Denies: Traveled Outside the [place] in Last 30 Days - Family History Known Family History: Positive: Other - Patient denies relevant FHx Negative: Cardiac Disease, Hypertension, Diabetes, Blood Disorder - Social History Alcohol Use: Occasionally Alcohol Amount: 1-2x per month Hx Substance Use: No Substance Use Type: Reports: Marijuana Substance Use Comment - Amount & Last Used: occasionally when drinking. Hx Tobacco Use: Yes Smoking Status (MU): Current Every Day Smoker Have You Smoked in the Last Year: No Review of Systems Positive: Fever Positive: Sore Throat Negative: Chest Pain Positive: Cough. Negative: Shortness Of Breath Positive: Abdominal Pain, Vomiting, Diarrhea, Nausea All Other Systems Reviewed And Are Negative: Yes Physical Exam Triage Information Reviewed: Yes Vital Signs On Initial Exam: Initial Vitals Temp Pulse Resp BP Pulse Ox 100.5 F 98 20 137/75 100 07/29/18 12:45 07/29/18 12:45 07/29/18 12:45 07/29/18 12:45 07/29/18 12:45 Vital Signs Reviewed: Yes Appearance: Positive: Well-Appearing Skin: Positive: Warm, Dry Head/Face: Positive: Normal Head/Face Inspection Eyes: Positive: Normal, EOMI, RAULITO, Conjunctiva Clear ENT: Positive: Normal ENT inspection, Pharyngeal erythema, TMs normal, Tonsillar swelling, Uvula midline, Other - soft palate symmetric. Negative: Tonsillar exudate, Trismus, Muffled voice Neck: Positive: Supple, Nontender, No Lymphadenopathy Respiratory/Lung Sounds: Positive: Clear to Auscultation, Breath Sounds Present Cardiovascular: Positive: Normal, RRR Abdomen Description: Positive: Soft, Other: - mild epigastric pain Bowel Sounds: Positive: Present Musculoskeletal: Positive: Normal Neurological: Positive: Normal Psychiatric: Positive: Normal Diagnostics - Vital Signs Vital Signs Temp Pulse Resp BP Pulse Ox 07/29/18 12:45 100.5 F 98 20 137/75 100 - Laboratory Result Diagrams: 07/29/18 13:58 07/29/18 13:58 Lab Statement: Any lab studies that have been ordered have been reviewed, and results considered in the medical decision making process. - Radiology chest Xray Interpretation: No Acute Changes Radiology Interpretation Completed By: Radiologist Re-Evaluation - Re-Evaluation First Eval Re-Evaluation Time: 14:47 Change: Improved Comment: feeling better after fluids, gi cocktail Course/Dx - Course Course Of Treatment: 22-year-old female presents with fever for the past week. She admits to a cough and sore throat. She denies any chest pain or shortness of breath. She states she has been taking ibuprofen every hour. She states that today she started to vomit and she admits to blood in her vomit. She denies any blood in her stool or dark tarry stool. She denies any history of GI bleeds. She admits to nausea and vomiting. She admits to decreased appetite. no medical conditions. no one else sick. on exam lungs CTA. mild epigastric pain. tonsils+2. erythema noted. uvula midline soft palate symmetric. wbc 15. mono neg. lactic normal. chest xray normal. vomiting blood likely due to ibuprofen overuse. told to stop ibuprofen. will prescribe omeprazole for 14 days. will give decadron for sore throat and magic mouth wash. told to do an at home test in 4 days as level is indeterminated but is likely negative. patient understand and agrees with plan. patient wanted to leave before labs all back. will send script for potassium. - Febrile Illness Differential Diagnoses: Pneumonia, Sepsis, Viremia - Diagnoses Provider Diagnoses: Upper respiratory infection, Vomiting blood Discharge - Sign-Out/Discharge Documenting (check all that apply): Patient Departure - Discharge Plan Condition: Good Disposition: HOME Prescriptions: Benzonatate CAP* [Tessalon 100 MG CAP*] 100 mg PO TID PRN #21 cap PRN Reason: Cough Dexamethasone TAB* [Decadron TAB*] 4 mg PO DAILY #5 tab Magic Mouth Was-PINA/MAAL/LIDO* 5 ml SWISH SPIT QID #100 ml Omeprazole CAP* [Prilosec CAP* 20 MG] 20 mg PO DAILY #14 cap. Ondansetron ODT TAB* [Zofran 4 MG Odt TAB*] 4 mg PO Q6H PRN #20 tab.odt PRN Reason: Nausea Potassium Chlor TAB* [Potassium Chlor TAB 20 MEQ*] 20 meq PO BID #6 tab.er Patient Education Materials: Upper Respiratory Infection (ED) Referrals: No Primary Care Phys,NOPCP [Primary Care Provider] - Additional Instructions: take omeprazole daily for 14 days Take tessalon for cough three times a day Take decadron daily for 5 days Magic mouthwash 5ml swish and spit can use 4x a day take zofran every 6 hours as needed for nausea stop taking ibuprofen, only use Tylenol every 6 hours for fever establish care with primary Return to ED if develop any new or worsening symptoms - Billing Disposition and Condition Condition: GOOD Disposition: Home
[2018-07-29 14:41] LABS: ABS Basophils 0 10^3/ul (0-0.2); ABS Eosinophils 0.1 10^3/ul (0-0.6); ABS Lymphocytes 1.4 10^3/ul (1.0-4.8); ABS Nucleated RBC 0 10^3/ul; Eosinophil % 0.4 % (0-6); Hematocrit 35 % (35-47); Lymphocyte % 9.2 % (25-47); Mean Corpuscular HGB Conc 34 g/dl (31-36); Mean Corpuscular Hemoglobin 30 pg (27-31); Mean Corpuscular Volume 87 fL (80-97); Mean Platelet Volume 9.2 um3 (7.4-10.4); Nucleated Red Blood Cells % 0; Platelet Count 226 10^3/ul (150-450); Red Blood Count 4.01 10^6/ul (4.00-5.40); Red Cell Distribution Width 15 % (10.5-15); White Blood Count 15.5 10^3/ul (3.5-10.8)
[2018-07-29] MEDS ORDERED: Acetaminophen TAB* 325 MG PO ONE (14:49)
--- NOTE | 2018-07-29 15:05 | RAD ---
Indication: Cough, fever. 2 views of the chest including dual energy PA views demonstrate no mediastinal shift. Heart is of normal size and configuration. Lung cook are clear. IMPRESSION: No active cardiopulmonary disease is noted.
[2018-07-29 15:37] VITALS: BP 118/62
[2018-07-29 15:40] LABS: EGFR Non-African American 105.6 (>60)
== END 2018-07-29 15:36 | disposition home or self-care (01) ==
LOC: ED 12:35
DX: J06.9 Acute upper respiratory infection, unspecified (principal); K92.0 Hematemesis; F17.200 Nicotine dependence, unspecified, uncomplicated
CPT/HCPCS: 36415; 71046; 80053; 83605; 84702; 85025; 86308; 96374; 96375; 99282; A9270-GY; J2405

== ENCOUNTER → 2018-09-05 10:56 | Emergency (ER) | payer SELFPAY ==
[2018-09-05 11:05] VITALS: BP 124/72
[2018-09-05 11:42] LABS: ABS Basophils 0.1 10^3/ul (0-0.2); ABS Eosinophils 0.1 10^3/ul (0-0.6); ABS Monocytes 0.5 10^3/ul (0-0.8); ABS Neutrophils 6.2 10^3/ul (1.5-7.7); ABS Nucleated RBC 0 10^3/ul; Hematocrit 39 % (35-47); Hemoglobin 13.6 g/dl (12.0-16.0); Mean Corpuscular HGB Conc 35 g/dl (31-36); Mean Corpuscular Hemoglobin 31 pg (27-31); Mean Corpuscular Volume 88 fL (80-97); Nucleated Red Blood Cells % 0; Platelet Count 213 10^3/ul (150-450); Red Blood Count 4.43 10^6/ul (4.00-5.40); Red Cell Distribution Width 16 % (10.5-15); White Blood Count 8.9 10^3/ul (3.5-10.8)
[2018-09-05 12:01] LABS: EGFR Non-African American 89.3 (>60)
[2018-09-05 17:59] LABS: Urine Appearance Cloudy; Urine Blood 3+ (Negative); Urine Color Yellow; Urine Ketones Negative (Negative); Urine Protein Negative (Negative); Urine Red Blood Cell 1+(3-5/hpf) (Absent); Urine Specific Gravity 1.027 (1.010-1.030); Urine Urobilinogen Negative (Negative); Urine White Blood Cell 1+(6-10/hpf) (Absent)
== END | disposition left against medical advice (07) ==
LOC: ED 10:56
DX: R42 Dizziness and giddiness (principal); Z53.21 Procedure and treatment not carried out due to patient leaving prior to being seen by health care provider
CPT/HCPCS: 36415; 80048; 81003; 81015; 84702; 85025; 87086; 87491; 87591

== ENCOUNTER 2018-09-05 15:16 | Emergency (ER) | payer SELFPAY ==
[2018-09-05 17:37] VITALS: BP 114/50
--- NOTE | 2018-09-05 17:50 | RAD ---
HISTORY: right side pelvic pain COMPARISONS: None TECHNIQUE: Multiple transverse and longitudinal ultrasound images were obtained of the pelvis using grayscale, color Doppler, and spectral Doppler imaging using the endovaginal transducer. FINDINGS: UTERUS: The uterus measures 7.8 x 3.2 x 3.9 cm. The uterus is normal in shape, size, contour, and echotexture. ENDOMETRIUM: The endometrial stripe is smooth. The endometrium measures 0.3 cm in thickness. CUL-DE-SAC: There is no free fluid within the cul-de-sac. RIGHT OVARY: The right ovary measures 3.7 x 1.9 x 3.1 cm. Multiple follicles are noted. Normal arterial and venous waveforms are identifiable within the ovary on spectral Doppler imaging. LEFT OVARY: The left ovary measures 2.9 x 1.3 x 2.3 cm. Multiple follicles are noted. Normal arterial and venous waveforms are identifiable within the ovary on spectral Doppler imaging. BLADDER: The bladder is not well visualized. OTHER: None IMPRESSION: NO ACUTE SONOGRAPHIC PATHOLOGY OF THE VISUALIZED PORTION OF THE PELVIS. NO SONOGRAPHIC FEATURES OF TORSION. PLEASE NOTE THAT PARTIAL OR INTERMITTENT TORSION MAY BE SONOGRAPHICALLY NORMAL.
== END 2018-09-05 19:52 | disposition left against medical advice (07) ==
LOC: ED 15:16
DX: R10.9 Unspecified abdominal pain (principal); Z53.21 Procedure and treatment not carried out due to patient leaving prior to being seen by health care provider
CPT/HCPCS: 76830; 99282

== ENCOUNTER 2018-09-06 11:13 | Emergency (ER) | payer MEDICAID, OTHER ==
[2018-09-06] MEDS ORDERED: Ketorolac INJ* 30 MG/ML 1 ML VIAL IV ONE (11:42)
--- NOTE | 2018-09-06 11:51 | ED ---
Abdominal Pain/Female - HPI Summary HPI Summary: Patient presents with diffuse abdominal pain that is focal at times in the right lower quadrant and wraps around her Rt flank on this side. She reports this as feeling like "fireworks" (sharp?) intermittently for the constant burning. She also admits to nausea, vomiting, diarrhea which started earlier this week. She denies upper respiratory symptoms such as rhinorrhea, sneezing, coughing, chest pain, rash, ear pain, neck stiffness, headache. She admits her 3-year-old is home from school today with the same symptoms of nausea, vomiting and diarrhea. however he is with her today and drinking from a cup and asking for crackers. She denies dysuria but does report she feels like her "vagina is going to fall out" when she urinates - states she has to [place] to prevent this sensation from happening. She also admits to a new vaginal discharge with a different odor, dyspareunia and pain with tampon insertion. She has a history of BVunsure if this feels similar or not. Denies any other history of vaginal infection such as yeast, chlamydia, gonorrhea, and/or Trichomonas. She is sexually active with her partner who is the father of her children. Reports BV started when she was sexually active with him. She is unsure if he has an STD or history of. She came to the emergency department yesterday and tests were ordered however she was not seen. Her labs revealed white blood cells to be within normal limits and her test to be negative. Her renal and liver function also looked normal. U/A revealed blood, leuk's, etc. She additionally had a transvaginal ultrasound which showed follicles in her ovaries bilaterally but no jada cyst(s) or torsion. She has had the Nexplanon in her left bicep area for the past 3 months and admits she's had bloody discharge since however she's not had pelvic/abdominal pain until recent sx started. No history of GI pathology such as IBS, diverticulitis, etc. She reports she was treated for UTI 2 weeks ago and symptoms resolved. Symptoms today do not feel the same. - History of Current Complaint Chief Complaint: EDAbdPain Stated Complaint: ABD PAIN Time Seen by Provider: 09/06/18 11:16 Hx Obtained From: Patient, Family/[employer] Traffic [employer] - 3 y.o. son Pain Intensity: 8 Allergies/Adverse Reactions: Allergies Allergy/AdvReac Type Severity Reaction Status Date / Time No Known Allergies Allergy Verified 09/05/18 15:21 PMH/Surg Hx/FS Hx/Imm Hx Previously Healthy: Yes Endocrine/Hematology History: Denies: Hx Diabetes, Autoimmune Disease Cardiovascular History: Denies: Hx Hypertension GI History: Denies: Hx Crohn's Disease, Hx Diverticulosis, Hx Gall Bladder Disease, Hx Gastroesophageal Reflux Disease, Hx Gastrointestinal Bleed, Hx Irritable Bowel, Hx Ulcer History: Reports: Other Problems/Disorders - BV Denies: Hx Kidney Infection, Hx Kidney Stones Sensory History: Denies: Hx Legally Blind, Hx Deafness Opthamlomology History: Denies: Hx Legally Blind - Immunization History Date of Tetanus Vaccine: utd Date of Influenza Vaccine: utd Infectious Disease History: No Infectious Disease History: Denies: Hx Clostridium Difficile, Traveled Outside the [place] in Last 30 Days - Family History Known Family History: Positive: Other - Patient denies relevant FHx Negative: Cardiac Disease, Hypertension, Diabetes, Blood Disorder - Social History Lives: With Family Alcohol Use: Occasionally Alcohol Amount: 1-2x per month Hx Substance Use: No Substance Use Type: Reports: Marijuana Substance Use Comment - Amount & Last Used: occasionally when drinking. Hx Tobacco Use: Yes Smoking Status (MU): Current Every Day Smoker Have You Smoked in the Last Year: No Review of Systems Constitutional: Negative Negative: Fever, Chills, Fatigue Cardiovascular: Negative Negative: Chest Pain Respiratory: Negative Negative: Shortness Of Breath, Cough Positive: Abdominal Pain, Vomiting, Diarrhea, Nausea Positive: see HPI Musculoskeletal: Negative Skin: Negative Neurological: Negative Psychological: Normal All Other Systems Reviewed And Are Negative: Yes Physical Exam Triage Information Reviewed: Yes Vital Signs On Initial Exam: Initial Vitals Temp Pulse Resp BP Pulse Ox 99 F 71 16 120/63 100 09/06/18 11:14 09/06/18 11:14 09/06/18 11:14 09/06/18 11:14 09/06/18 11:14 Vital Signs Reviewed: Yes Appearance: Positive: Well-Appearing, No Pain Distress - at rest - in pain during ab exam and pelvic exam, Well-Nourished Skin: Positive: Warm, Skin Color Reflects Adequate Perfusion, Dry - no ecchymosis over ab/flanks Head/Face: Positive: Normal Head/Face Inspection Eyes: Positive: Normal, EOMI, Conjunctiva Clear - anicteric sclera ENT: Positive: Normal ENT inspection, Hearing grossly normal, Pharynx normal - mucosa moist Respiratory/Lung Sounds: Positive: Clear to Auscultation, Breath Sounds Present. Negative: Rales, Rhonchi, Wheezes Cardiovascular: Positive: Normal, RRR, S1, S2 Abdomen Description: Positive: Soft, CVA Tenderness (R) - worse, CVA Tenderness (L), Other: - TTP over LLQ, epigastric region, RLQ and RUQ - no rebounding or referred pain - suprapubic region is NTTP. Negative: Distended, Guarding, Hernia @ Bowel Sounds: Positive: Present Pelvic Exam: Positive: External Exam Normal, Blood - blood is dark in color/ scant - mixed w/ mucous - malodorous, Discharge, Tender w/ Cervical Motion, Tender Adnexa, Tender Uterus, Other - no yellow or green d/c appreciated. Negative: Cervicitis Musculoskeletal: Positive: Normal, Strength/ROM Intact Neurological: Positive: Normal, Sensory/Motor Intact, Alert, Oriented to Person Place, Time, CN Intact II-III Psychiatric: Positive: Normal Diagnostics - Vital Signs Vital Signs Temp Pulse Resp BP Pulse Ox 09/06/18 11:25 78 98 09/06/18 11:14 99 F 82 16 120/63 98 - Laboratory Result Diagrams: 09/06/18 12:03 09/06/18 12:03 Lab Statement: Any lab studies that have been ordered have been reviewed, and results considered in the medical decision making process. Abdominal Pain Fem Course/Dx - Course Course Of Treatment: Suspect PID - source not identified today but pt agrees to empiric tx of common bacterial infections that may cause this. She received ceftriaxone and zithromax here to cover gonorrhea and chlamydia. Will take flagyl as an outpt and follow-up with a phone call here if she does not hear back by the end of the week as cx's are pending. Based on labs, PE and hx, CT was not ordered today. Advised pt if sx persist or worsen despite tx plan, return to ED . Also discussed pelvic rest, STD prevention, co-tx once labs return, etc. Pt he agrees w/ plan. - Diagnoses Provider Diagnoses: PID (acute pelvic inflammatory disease) Discharge - Sign-Out/Discharge Documenting (check all that apply): Patient Departure - Discharge Plan Condition: Stable Disposition: HOME Prescriptions: metroNIDAZOLE [Flagyl] 500 mg PO Q12HR #14 tablet Patient Education Materials: Pelvic Inflammatory Disease (ED) Referrals: [facility] [Outside] Additional Instructions: You appear to have an infection causing inflammation and pain in your pelvic region. You were treated with 2 antibiotics today to cover both gonorrhea and chlamydia. No further treatment should be required for these potential infections and you will receive a phone call in 2 days if your cultures reveal positive findings for gonorrhea and/or chlamydia. If they are positive, you will need follow-up to have retesting and to talk to your partner(s) about treatment to prevent continuation of spread of infection back and forth. Additionally, you were treated for bacterial vaginosis and an antibiotic was sent to your pharmacy. Please complete as directed. This culture will return in a couple days as well. It is important that you follow-up with [facility] in 2-3 days to review your results, see if your symptoms are improving, guide you through additional testing/treatment if needed, etc Call today to schedule an appointment. If you feel worse in the meantime, return to the ED - Billing Disposition and Condition Condition: STABLE Disposition: Home
[2018-09-06] MEDS ORDERED: NS 0.9% 1000 ML* 1,000 ML IV SCH (12:00)
[2018-09-06 12:10] LABS: Hematocrit 37 % (35-47); Hemoglobin 12.6 g/dl (12.0-16.0); Mean Corpuscular HGB Conc 34 g/dl (31-36); Mean Corpuscular Hemoglobin 30 pg (27-31); Mean Corpuscular Volume 89 fL (80-97); Mean Platelet Volume 8.5 um3 (7.4-10.4); Platelet Count 206 10^3/ul (150-450); Red Blood Count 4.17 10^6/ul (4.00-5.40); Red Cell Distribution Width 15 % (10.5-15); White Blood Count 9.7 10^3/ul (3.5-10.8)
[2018-09-06 12:24] LABS: INR 1.13 (0.77-1.02)
[2018-09-06 12:29] LABS: EGFR Non-African American 94.6 (>60)
[2018-09-06 12:32] LABS: ABS Basophils 0.1 10^3/ul (0-0.2); ABS Eosinophils 0.1 10^3/ul (0-0.6); ABS Lymphocytes 2.3 10^3/ul (1.0-4.8); ABS Monocytes 0.7 10^3/ul (0-0.8); ABS Neutrophils 6.4 10^3/ul (1.5-7.7)
[2018-09-06] MEDS ORDERED: Azithromycin TAB* 250 MG PO ONE (12:36)
[2018-09-06] MEDS ORDERED: cefTRIAXone VIAL(*) 1,000 MG VIAL IVPB ONE (12:36)
[2018-09-06 12:37] LABS: ABS Basophils 0.1 10^3/ul (0-0.2); ABS Neutrophils 6.6 10^3/ul (1.5-7.7); Monocytes % 4 % (0-7)
[2018-09-06] MEDS ORDERED: cefTRIAXone VIAL(*) 250 MG in NS 0.9% 50 ML* 50 ML IVPB ONE (13:00)
[2018-09-06 13:33] VITALS: BP 95/50
== END 2018-09-06 13:31 | disposition home or self-care (01) ==
LOC: ED 11:13
DX: N73.9 Female pelvic inflammatory disease, unspecified (principal); F17.200 Nicotine dependence, unspecified, uncomplicated
CPT/HCPCS: 36415; 80053; 83605; 83690; 83735; 85025; 85060; 85610; 85730; 86140; 87480; 87491; 87510; 87591; 87661; 96361; 96374; 99283; A9270-GY; J0696; J1885

== ENCOUNTER 2019-01-20 23:33 | Emergency (ER) | payer OTHER ==
[2019-01-21] MEDS ORDERED: NS 0.9% 1000 ML** 1,000 ML IV ONE (00:04)
[2019-01-21] MEDS ORDERED: Ondansetron INJ* 2 MG/ML VIAL IV ONE (00:04)
[2019-01-21] MEDS ORDERED: Ketorolac INJ* 30 MG/ML 1 ML VIAL IV PUSH ONE (00:04)
[2019-01-21 00:27] LABS: ABS Basophils 0 10^3/ul (0-0.2); ABS Eosinophils 0 10^3/ul (0-0.6); ABS Lymphocytes 1.2 10^3/ul (1.0-4.8); ABS Monocytes 0.5 10^3/ul (0-0.8); ABS Neutrophils 3.9 10^3/ul (1.5-7.7); ABS Nucleated RBC 0 10^3/ul; Eosinophil % 0.2 %; Hematocrit 37 % (35-47); Hemoglobin 12.6 g/dl (12.0-16.0); Lymphocyte % 20.7 %; Mean Corpuscular HGB Conc 34 g/dl (31-36); Mean Corpuscular Hemoglobin 31 pg (27-31); Mean Corpuscular Volume 90 fL (80-97); Mean Platelet Volume 8.7 fL (7.4-10.4); Nucleated Red Blood Cells % 0; Platelet Count 137 10^3/ul (150-450); Red Blood Count 4.13 10^6/ul (4.00-5.40); Red Cell Distribution Width 14 % (10.5-15); White Blood Count 5.6 10^3/ul (3.5-10.8)
[2019-01-21 00:30] LABS: Influenza A Molecular POSITIVE (Negative)
[2019-01-21 00:45] LABS: ALT 11 U/L (7-52); AST 14 U/L (13-39); Albumin 3.9 g/dL (3.2-5.2); Albumin/Globulin Ratio 1.4 (1-3); Alkaline Phosphatase 43 U/L (34-104); Anion Gap 7 mmol/L (2-11); BUN/Creatinine Ratio 8.4 (8-20); Blood Urea Nitrogen 7 mg/dL (6-24); CO2 Carbon Dioxide 22 mmol/L (22-32); Calcium 8.3 mg/dL (8.6-10.3); Chloride 107 mmol/L (101-111); Globulin 2.8 g/dL (2-4); Glucose 105 mg/dL (70-100); Potassium 3.4 mmol/L (3.5-5.0); Sodium 136 mmol/L (135-145); Total Protein 6.7 g/dL (6.4-8.9)
[2019-01-21 00:51] LABS: HCG Pregnancy < 0.60 mIU/mL
--- NOTE | 2019-01-21 01:12 | ED ---
Influenza-Like Illness - HPI Summary HPI Summary: 23 year old female presents with flulike illness for the past 3 days. Her children were just diagnosed with flu. She admits to cough and sinus congestion. She denies any sore throat. She admits to headache. Denies any chest pain or shortness breath. She admits to abd pain. He admits to nausea vomiting diarrhea. She has been taking cold and flu for her symptoms. She has no medical conditions. She states she's been barely able to get the fever down. - History of Current Complaint Chief Complaint: EDFluSymptoms Time Seen by Provider: 01/20/19 23:47 - Allergy/Home Medications Allergies/Adverse Reactions: Allergies Allergy/AdvReac Type Severity Reaction Status Date / Time No Known Allergies Allergy Verified 01/20/19 23:45 PMH/Surg Hx/FS Hx/Imm Hx Endocrine/Hematology History: Denies: Hx Diabetes Cardiovascular History: Denies: Hx Hypertension GI History: Denies: Hx Crohn's Disease, Hx Diverticulosis, Hx Gall Bladder Disease, Hx Gastroesophageal Reflux Disease, Hx Gastrointestinal Bleed, Hx Irritable Bowel, Hx Ulcer History: Reports: Other Problems/Disorders - BV Denies: Hx Kidney Infection, Hx Kidney Stones Sensory History: Denies: Hx Legally Blind, Hx Deafness Opthamlomology History: Denies: Hx Legally Blind - Immunization History Date of Tetanus Vaccine: utd Date of Influenza Vaccine: utd Infectious Disease History: No Infectious Disease History: Denies: Hx Clostridium Difficile, Traveled Outside the [place] in Last 30 Days - Family History Known Family History: Positive: Other - Patient denies relevant FHx Negative: Cardiac Disease, Hypertension, Diabetes, Blood Disorder - Social History Alcohol Use: Occasionally Alcohol Amount: 1-2x per month Hx Substance Use: No Substance Use Type: Reports: Marijuana Substance Use Comment - Amount & Last Used: occasionally when drinking. Hx Tobacco Use: Yes Smoking Status (MU): Light Every Day Tobacco Smoker Have You Smoked in the Last Year: No Review of Systems Positive: Fever Negative: Chest Pain Positive: Cough. Negative: Shortness Of Breath Positive: Abdominal Pain, Vomiting, Diarrhea, Nausea All Other Systems Reviewed And Are Negative: Yes Physical Exam Triage Information Reviewed: Yes Vital Signs On Initial Exam: Initial Vitals Temp Pulse Resp BP Pulse Ox 101 F 112 24 121/67 97 01/20/19 23:33 01/20/19 23:33 01/20/19 23:33 01/20/19 23:33 01/20/19 23:33 Vital Signs Reviewed: Yes Appearance: Positive: Ill-Appearing Skin: Positive: Warm, Dry Head/Face: Positive: Normal Head/Face Inspection Eyes: Positive: Normal, EOMI, RAULITO, Conjunctiva Clear ENT: Positive: Normal ENT inspection, Pharynx normal, Nasal drainage, TMs normal Neck: Positive: Supple, Nontender, No Lymphadenopathy. Negative: Nuchal Rigidity Respiratory/Lung Sounds: Positive: Clear to Auscultation, Breath Sounds Present Cardiovascular: Positive: Normal, RRR Abdomen Description: Positive: Nontender, Soft Bowel Sounds: Positive: Present Musculoskeletal: Positive: Normal Neurological: Positive: Normal Psychiatric: Positive: Normal Diagnostics - Vital Signs Vital Signs Temp Pulse Resp BP Pulse Ox 01/21/19 00:41 96 20 98/50 97 01/21/19 00:10 120 19 111/72 98 01/21/19 00:00 107 21 96 01/20/19 23:41 121/67 97 01/20/19 23:33 101 F 112 24 121/67 97 - Laboratory Lab Results: Lab Results 01/21/19 01/21/19 01/21/19 Range/Units 00:21 00:21 00:25 WBC 5.6 (3.5-10.8) 10^3/ul RBC 4.13 (4.00-5.40) 10^6/ul Hgb 12.6 (12.0-16.0) g/dl Hct 37 (35-47) % MCV 90 (80-97) fL MCH 31 (27-31) pg MCHC 34 (31-36) g/dl RDW 14 (10.5-15) % Plt Count 137 L (150-450) 10^3/ul MPV 8.7 (7.4-10.4) fL Neut % (Auto) 69.2 % Lymph % (Auto) 20.7 % Kimball % (Auto) 9.2 % Eos % (Auto) 0.2 % Baso % (Auto) 0.7 % Absolute Neuts (auto) 3.9 (1.5-7.7) 10^3/ul Absolute Lymphs (auto) 1.2 (1.0-4.8) 10^3/ul Absolute Monos (auto) 0.5 (0-0.8) 10^3/ul Absolute Eos (auto) 0 (0-0.6) 10^3/ul Absolute Basos (auto) 0 (0-0.2) 10^3/ul Absolute Nucleated RBC 0 10^3/ul Nucleated RBC % 0 Sodium 136 (135-145) mmol/L Potassium 3.4 L (3.5-5.0) mmol/L Chloride 107 (101-111) mmol/L Carbon Dioxide 22 (22-32) mmol/L Anion Gap 7 (2-11) mmol/L BUN 7 (6-24) mg/dL Creatinine 0.83 (0.51-0.95) mg/dL Est GFR ( Amer) 104.0 (>60) Est GFR (Non-Af Amer) 86.0 (>60) BUN/Creatinine Ratio 8.4 (8-20) Glucose 105 H (70-100) mg/dL Calcium 8.3 L (8.6-10.3) mg/dL Total Bilirubin 0.20 (0.2-1.0) mg/dL AST 14 (13-39) U/L ALT 11 (7-52) U/L Alkaline Phosphatase 43 (34-104) U/L Total Protein 6.7 (6.4-8.9) g/dL Albumin 3.9 (3.2-5.2) g/dL Globulin 2.8 (2-4) g/dL Albumin/Globulin Ratio 1.4 (1-3) Beta HCG, Quant < 0.60 mIU/mL Influenza A (Rapid) Positive A (Negative) Result Diagrams: 01/21/19 00:21 01/21/19 00:21 Lab Statement: Any lab studies that have been ordered have been reviewed, and results considered in the medical decision making process. - Radiology chest Radiology Interpretation Completed By: ED Physician Summary of Radiographic Findings: no active disease Re-Evaluation - Re-Evaluation First Eval Re-Evaluation Time: 01:16 Change: Improved Comment: feeling better Flu Symptom Course/Dx - Course Course Of Treatment: 23 year old female presents with flulike illness for the past 3 days. Her children were just diagnosed with flu. She admits to cough and sinus congestion. She denies any sore throat. She admits to headache. Denies any chest pain or shortness breath. She admits to abd pain. He admits to nausea vomiting diarrhea. She has been taking cold and flu for her symptoms. She has no medical conditions. She states she's been barely able to get the fever down. On exam lungs clear to auscultation. Abdomen soft nontender. wbc normal Flu A is positive. Out of range treat with Tamiflu. Gave fluids Toradol and Zofran and feeling better. Chest x-ray normal. We'll treat with zofran and tessalon. Patient understands agrees with plan. - Diagnoses Differential Diagnosis/HQI/PQRI: Positive: Influenza, Pneumonia, Upper Respiratory Infection Provider Diagnoses: Influenza Discharge - Sign-Out/Discharge Documenting (check all that apply): Patient Departure Patient Received Moderate/Deep Sedation with Procedure: No - Discharge Plan Condition: Good Disposition: HOME Prescriptions: Benzonatate CAP* [Tessalon 100 MG CAP*] 100 mg PO TID #21 cap Ondansetron ODT TAB* [Zofran 4 MG Odt TAB*] 4 mg PO Q6H PRN #16 tab.odt PRN Reason: Nausea Patient Education Materials: Influenza (ED) Forms: *Work Release Referrals: [facility] [place] [facility] [Outside] Additional Instructions: Use Tessalon three times a day for cough Take Zofran every 6 hours as needed for nausea Use saline in the nose Take Tylenol and ibuprofen for pain/fever every 6 hours Establish care with primary care physician Return to ED if develop any new or worsening symptoms - Billing Disposition and Condition Condition: GOOD Disposition: Home
[2019-01-21] MEDS ORDERED: Acetaminophen TAB* 325 MG PO ONE (01:18)
[2019-01-21] MEDS ORDERED: Ondansetron ODT TAB* 4 MG PO ONE (01:18)
[2019-01-21] MEDS ORDERED: Benzonatate CAP* 100 MG PO ONE (01:18)
[2019-01-21 01:34] VITALS: BP 113/72
== END 2019-01-21 01:33 | disposition home or self-care (01) ==
LOC: ED 23:33
DX: J11.1 Influenza due to unidentified influenza virus with other respiratory manifestations (principal); R50.9 Fever, unspecified; R05 Cough; F17.210 Nicotine dependence, cigarettes, uncomplicated
CPT/HCPCS: 36415; 71046; 80053; 84702; 85025; 96361; 96374; 96375; 99283; A9270-GY; J1885; J2405

== ENCOUNTER 2019-03-04 08:44 | Emergency (ER) | payer OTHER ==
[2019-03-04 09:16] VITALS: BP 127/53
--- NOTE | 2019-03-04 09:50 | UC ---
Respiratory Complaint HPI - HPI Summary HPI Summary: cough x10 days assoc. w/ fever of 101F initially. Fever resolved and cough persists. She quit smoking 7 days ago. Her children are sick w/ the same issue. - History of Current Complaint Chief Complaint: UCRespiratory Stated Complaint: CHEST CONGESTION Time Seen by Provider: 03/04/19 09:21 Hx Obtained From: Patient Hx Last Menstrual Period: implanon Pain Intensity: 8 Pain Scale Used: 0-10 Numeric Character: Cough: Productive Aggravating Factors: Deep Breaths, Recumbent Position Alleviating Factors: Nothing Associated Signs And Symptoms: Negative: Wheezing, Hemoptysis - Allergies/Home Medications Allergies/Adverse Reactions: Allergies Allergy/AdvReac Type Severity Reaction Status Date / Time No Known Allergies Allergy Verified 03/04/19 09:16 Home Medications: Home Medications D-Methorphan/PE/Acetaminophen [Vicks Dayquil Cold & Flu] 1 cap PO 03/04/19 [ History] Dm/Acetaminophen/Doxylamine [Vicks Nyquil Cold & Flu N 15-6.25-325 mg] 1 cap PO 03/04/19 [History] PMH/Surg Hx/FS Hx/Imm Hx - Additional Past Medical History Additional PMH: no chronic issues Previously Healthy: Yes - Surgical History Surgical History: None - Family History Known Family History: Positive: Other - Patient denies relevant FHx Negative: Cardiac Disease, Hypertension, Diabetes, Blood Disorder - Social History Alcohol Use: Rare Alcohol Amount: 1-2x per month Substance Use Type: Marijuana Substance Use Comment - Amount & Last Used: occasionally when drinking. Smoking Status (MU): Former Smoker Have You Smoked in the Last Year: No - Immunization History Most Recent Influenza Vaccination: unknown Most Recent Tetanus Shot: 07/17/15 Most Recent Pneumonia Vaccination: none Review of Systems All Other Systems Reviewed And Are Negative: Yes Constitutional: Positive: Fever, Chills, Fatigue Skin: Negative: Rash ENT: Negative: Sore Throat, Sinus Congestion Respiratory: Positive: Cough - productive. Negative: Shortness Of Breath, Other - wheezing Cardiovascular: Positive: Negative Gastrointestinal: Negative: Vomiting, Diarrhea Musculoskeletal: Negative: Myalgia Physical Exam Triage Information Reviewed: Yes Appearance: Well-Appearing Vital Signs: Initial Vital Signs Temp 99.7 F 03/04/19 09:12 Pulse 113 03/04/19 09:12 Resp 18 03/04/19 09:12 BP 127/53 03/04/19 09:12 Pulse Ox 98 03/04/19 09:12 Vital Signs Reviewed: Yes Eyes: Positive: Conjunctiva Clear ENT: Positive: Pharynx normal, TMs normal, Uvula midline Neck: Positive: Supple, Nontender, No Lymphadenopathy. Negative: Nuchal Rigidity Respiratory: Positive: No respiratory distress, Crackles - throughout. Negative : Accessory muscle use, Stridor, Wheezing Cardiovascular Exam: Normal Skin: Negative: Rashes Respiratory Course/Dx - Course Course Of Treatment: Initially febrile w/ productive cough lasting approx 10 days in a smoker who quit 7days ago. Fever resolved and cough persists w/ no improvement. ON exam rales throughout and although this is likely viral, will cover for bacterial source. vitals good. - Differential Dx/Diagnosis Differential Diagnosis/HQI/PQRI: Asthma, Bronchitis, Lower Resp Infection Provider Diagnosis: Lower respiratory infection Discharge - Sign-Out/Discharge Documenting (check all that apply): Patient Departure All imaging exams completed and their final reports reviewed: No Studies - Discharge Plan Condition: Good Disposition: HOME Prescriptions: Azithromycin TAB* [Zithromax TAB (Z-MARY) 250 mg #6 tabs] 2 tab PO .TODAY, THEN 1 DAILY #1 mary Patient Education Materials: Viral Pneumonia (DC) Forms: *Work Release Referrals: No Primary Care Phys,NOPCP [Primary Care Provider] - Additional Instructions: I think there is viral pneumonia throughout the family that came in today but I am going to cover oyu for bacterial source given duration of days. - Billing Disposition and Condition Condition: GOOD Disposition: Home
== END 2019-03-04 10:05 | disposition home or self-care (01) ==
LOC: UCEAST 08:44
DX: J22 Unspecified acute lower respiratory infection (principal); Z87.891 Personal history of nicotine dependence
CPT/HCPCS: 99212; G0463

== ENCOUNTER 2019-05-13 16:51 | Emergency (ER) | payer OTHER ==
--- NOTE | 2019-05-13 19:13 | ED ---
HPI Febrile Illness - HPI Summary HPI Summary: This patient is a 23 year old female presenting to [facility] with a chief complaint of febrile illness since 3 days ago. The patient reports fever, chills sore throat, white puss on the back of her throat, nausea, diarrhea, productive cough , and nasal congestion. She states it is difficult to swallow food. - History of Current Complaint Chief Complaint: EDUpperRespComplaint Time Seen by Provider: 05/13/19 19:00 Hx Obtained From: Patient Hx Last Menstrual Period: implanon Onset/Duration: Started Days Ago Pain Intensity: 0 Pain Scale Used: 0-10 Numeric Associated Signs and Symptoms: Chills, Cough, Diarrhea, Sore Throat - Allergy/Home Medications Allergies/Adverse Reactions: Allergies Allergy/AdvReac Type Severity Reaction Status Date / Time No Known Allergies Allergy Verified 03/04/19 09:16 PMH/Surg Hx/FS Hx/Imm Hx Endocrine/Hematology History: Denies: Hx Diabetes Cardiovascular History: Denies: Hx Hypertension GI History: Denies: Hx Crohn's Disease, Hx Diverticulosis, Hx Gall Bladder Disease, Hx Gastroesophageal Reflux Disease, Hx Gastrointestinal Bleed, Hx Irritable Bowel, Hx Ulcer History: Reports: Other Problems/Disorders - BV Denies: Hx Kidney Infection, Hx Kidney Stones Sensory History: Denies: Hx Legally Blind, Hx Deafness Opthamlomology History: Denies: Hx Legally Blind - Immunization History Date of Tetanus Vaccine: utd Date of Influenza Vaccine: utd Infectious Disease History: No Infectious Disease History: Denies: Hx Clostridium Difficile, Traveled Outside the [place] in Last 30 Days - Family History Known Family History: Positive: Other - Patient denies relevant FHx Negative: Cardiac Disease, Hypertension, Diabetes, Blood Disorder - Social History Alcohol Use: Rare Alcohol Amount: 1-2x per month Hx Substance Use: No Substance Use Type: Reports: Marijuana Substance Use Comment - Amount & Last Used: occasionally when drinking. Hx Tobacco Use: Yes Smoking Status (MU): Former Smoker Have You Smoked in the Last Year: No Review of Systems Positive: Fever, Chills Positive: Sore Throat, Nasal Discharge Positive: Diarrhea, Nausea All Other Systems Reviewed And Are Negative: Yes Physical Exam - Summary Physical Exam Summary: Appearance: The patient is well-nourished in no acute distress and in no acute pain. Skin: The skin is warm and dry and skin color reflects adequate perfusion. Warm to the touch. HEENT: The head is normocephalic and atraumatic. The pupils are equal and reactive. The conjunctivae are clear and without drainage. Nares are patent and without drainage. Mouth reveals moist mucous membranes and the throat is without erythema. Exudated pharyngitis. The external ears are intact. The ear canals are patent and without drainage. The tympanic membranes are intact. Neck: The neck is supple with full range of motion and non-tender. There are no carotid bruits. There is no neck vein distension. Respiratory: Chest is non-tender. Lungs are clear to auscultation and breath sounds are symmetrical and equal. Cardiovascular: Heart is regular rate and rhythm. There is no murmur or rub auscultated. There is no peripheral edema and pulses are symmetrical and equal. Abdomen: The abdomen is soft and non-tender. There are normal bowel sounds heard in all four quadrants and there is no organomegaly palpated. Musculoskeletal: There is no back tenderness noted. Extremities are non-tender with full range of motion. There is good capillary refill. There is no peripheral edema or calf tenderness elicited. Neurological: Patient is alert and oriented to person, place and time. The patient has symmetrical motor strength in all four extremities. Cranial nerves are grossly intact. Deep tendon reflexes are symmetrical and equal in all four extremities. Psychiatric: The patient has an appropriate affect and does not exhibit any anxiety or depression. Triage Information Reviewed: Yes Vital Signs On Initial Exam: Initial Vitals Temp Pulse Resp BP Pulse Ox 102 F 100 18 146/70 97 05/13/19 16:59 05/13/19 16:59 05/13/19 16:59 05/13/19 16:59 05/13/19 16:59 Vital Signs Reviewed: Yes Diagnostics - Vital Signs Vital Signs Temp Pulse Resp BP Pulse Ox 05/13/19 16:59 102 F 100 18 146/70 97 - Laboratory Result Diagrams: 05/13/19 19:39 05/13/19 19:39 Lab Statement: Any lab studies that have been ordered have been reviewed, and results considered in the medical decision making process. - Radiology CXR Radiology Interpretation Completed By: ED Physician Summary of Radiographic Findings: Possible left infiltrate. Pending official radiologist report. Course/Dx - Course Course Of Treatment: Ms. [place] presented febrile with a sore throat, congestion and a cough. She also complained of diffuse myalgias and arthralgias. She did have an exudative pharyngitis with some lymphadenopathy. Her rapid strep and mono were negative. This may all represent a viral process however I'm concerned about the left base of her chest x-ray and I'm going to give her prescription for Biaxin for presumed pneumonia although this may also be viral. She never met septic criteria here but did get IV fluids. - Diagnoses Provider Diagnoses: Pneumonia Discharge - Sign-Out/Discharge Documenting (check all that apply): Patient Departure - Discharge Patient Received Moderate/Deep Sedation with Procedure: No - Discharge Plan Condition: Stable Disposition: HOME Prescriptions: Clarithromycin TAB* [Biaxin TAB*] 500 mg PO BID #20 tab Patient Education Materials: Pneumonia (ED) Referrals: [facility] [Outside] Additional Instructions: Follow up with [facility]. Return to ED with any new or worsening symptoms. - Billing Disposition and Condition Condition: STABLE Disposition: Home - Attestation Statements Document Initiated by Gallito: Yes Documenting Scribe: Kaden Camacho Provider For Whom Gallito is Documenting (Include Credential): Valdez Choe MD Scribe Attestation: IKaden, scribed for Valdez Choe MD on 05/13/19 at 2151. Scribe Documentation Reviewed: Yes Provider Attestation: The documentation as recorded by the Kaden archer accurately reflects the service I personally performed and the decisions made by me, Valdez Choe MD Status of Scribe Document: Viewed
[2019-05-13] MEDS ORDERED: Acetaminophen TAB* 325 MG PO ONE (19:14)
[2019-05-13] MEDS ORDERED: NS 0.9% 1000 ML** 1,000 ML IV ONE (19:14)
[2019-05-13 19:48] LABS: ABS Basophils 0.1 10^3/ul (0-0.2); ABS Lymphocytes 1.7 10^3/ul (1.0-4.8); ABS Monocytes 1.1 10^3/ul (0-0.8); ABS Neutrophils 8.8 10^3/ul (1.5-7.7); Eosinophil % 0.3 %; Hematocrit 41 % (35-47); Hemoglobin 14.3 g/dL (12.0-16.0); Lymphocyte % 14.5 %; Mean Corpuscular HGB Conc 35 g/dL (31-36); Mean Corpuscular Hemoglobin 31 pg (27-31); Mean Corpuscular Volume 89 fL (80-97); Mean Platelet Volume 8.8 fL (7.4-10.4); Nucleated Red Blood Cells % 0.2; Platelet Count 162 10^3/uL (150-450); Red Blood Count 4.58 10^6 /uL (3.70-4.87); Red Cell Distribution Width 15 % (10-15); White Blood Count 11.7 10^3/uL (3.5-10.8)
[2019-05-13 20:03] LABS: Albumin 4.2 g/dL (3.2-5.2); Albumin/Globulin Ratio 1.2 (1-3); BUN/Creatinine Ratio 10.7 (8-20); C Reactive Protein 92.1 mg/L (<8.01); Calcium 9.3 mg/dL (8.6-10.3); EGFR African American 102.6 (>60); EGFR Non-African American 84.8 (>60); Globulin 3.6 g/dL (2-4); Potassium 3.4 mmol/L (3.5-5.0); Total Bilirubin 0.5 mg/dL (0.2-1.0); Total Protein 7.8 g/dL (6.4-8.9)
[2019-05-13 20:30] LABS: Rapid Strep Molecular Negative (Negative)
[2019-05-13] MEDS ORDERED: Clarithromycin TAB* 500 MG PO ONE (21:15)
[2019-05-13 21:37] VITALS: BP 109/72
== END 2019-05-13 21:36 | disposition home or self-care (01) ==
LOC: ED 16:51
DX: J18.9 Pneumonia, unspecified organism (principal); Z87.891 Personal history of nicotine dependence
CPT/HCPCS: 36415; 71045; 80053; 83605; 85025; 86140; 86308; 87040; 87651; 96360; 99284; A9270-GY

== ENCOUNTER 2019-09-02 08:37 | Emergency (ER) | payer OTHER ==
[2019-09-02] MEDS ORDERED: Ondansetron TAB* 4 MG PO ONE (09:00)
[2019-09-02] MEDS ORDERED: Famotidine TAB* 20 MG PO ONE (09:00)
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
[2019-09-02 09:46] LABS: ABS Basophils 0.1 10^3/ul (0-0.2); ABS Eosinophils 0.1 10^3/ul (0-0.6); ABS Monocytes 0.8 10^3/ul (0-0.8); ABS Neutrophils 6.5 10^3/ul (1.5-7.7); Eosinophil % 0.5 %; Hematocrit 38 % (35-47); Hemoglobin 13.2 g/dL (12.0-16.0); Lymphocyte % 21.4 %; Mean Corpuscular HGB Conc 34 g/dL (31-36); Mean Corpuscular Hemoglobin 31 pg (27-31); Mean Corpuscular Volume 91 fL (80-97); Mean Platelet Volume 8.2 fL (7.4-10.4); Platelet Count 239 10^3/uL (150-450); Red Blood Count 4.22 10^6 /uL (3.70-4.87); Red Cell Distribution Width 14 % (10-15); White Blood Count 9.5 10^3/uL (3.5-10.8)
[2019-09-02 10:14] LABS: ALT 9 U/L (7-52); AST 12 U/L (13-39); Albumin 4.1 g/dL (3.2-5.2); Albumin/Globulin Ratio 1.3 (1-3); Alkaline Phosphatase 49 U/L (34-104); Anion Gap 6 mmol/L (2-11); Blood Urea Nitrogen 7 mg/dL (6-24); C Reactive Protein 2.93 mg/L (<8.01); CO2 Carbon Dioxide 26 mmol/L (22-32); Calcium 9.2 mg/dL (8.6-10.3); Chloride 107 mmol/L (101-111); EGFR African American 111.7 (>60); EGFR Non-African American 92.4 (>60); Globulin 3.1 g/dL (2-4); Glucose 91 mg/dL (70-100); Potassium 3.7 mmol/L (3.5-5.0); Sodium 139 mmol/L (135-145); Total Protein 7.2 g/dL (6.4-8.9)
[2019-09-02 10:20] LABS: HCG Pregnancy < 0.60 mIU/mL
[2019-09-02 10:29] LABS: Urine Appearance Clear; Urine Bilirubin Negative (Negative); Urine Blood Negative (Negative); Urine Color Yellow; Urine Glucose Negative (Negative); Urine Ketones Negative (Negative); Urine Nitrite Negative (Negative); Urine Protein Negative (Negative); Urine Urobilinogen Negative (Negative)
[2019-09-02 11:02] VITALS: BP 106/69
== END 2019-09-02 11:00 | disposition home or self-care (01) ==
LOC: ED 08:37
DX: R10.9 Unspecified abdominal pain (principal); R11.0 Nausea; Z87.891 Personal history of nicotine dependence
CPT/HCPCS: 36415; 80053; 81003; 84702; 85025; 86140; 99282; A9270-GY

== ENCOUNTER 2019-10-08 14:07 | Emergency (ER) | payer OTHER ==
[2019-10-08] MEDS ORDERED: NS 0.9% 1000 ML** 1,000 ML IV ONE (14:47)
[2019-10-08] MEDS ORDERED: Ondansetron INJ* 2 MG/ML VIAL IV ONE (14:47)
--- NOTE | 2019-10-08 14:47 | ED ---
Abdominal Pain/Female - HPI Summary HPI Summary: Patient complains of possible 5 weeks confirmed by urine test, lower pelvic pain 1 week, worse in the past 3 days, nausea and vomiting 1 week worsening today with small blood clots noticed today. Also complains of pink color on tissue paper when wiping after urination. Denies fever, cough, sore throat, CP, SOB, diarrhea, pain with urination, vaginal discharge or pain. Medical history is none. Abdominal surgical history is none. . Patient has Nexplanon implant. - History of Current Complaint Chief Complaint: EDAbdPain Stated Complaint: POSS ECTOPIC PER PT Time Seen by Provider: 10/08/19 14:44 Hx Obtained From: Patient Hx Last Menstrual Period: implanon Onset/Duration: Gradual Onset, Lasting Days Timing: Constant Severity Initially: Severe Severity Currently: Severe Pain Intensity: 10 Pain Scale Used: 0-10 Numeric Location: Discrete At: RLQ, Suprapubic Radiates to: Back Character: Cramping Aggravating Factor(s): Nothing Alleviating Factor(s): Nothing Associated Signs and Symptoms: Positive: Back Pain, Vaginal Bleeding, Nausea Allergies/Adverse Reactions: Allergies Allergy/AdvReac Type Severity Reaction Status Date / Time No Known Allergies Allergy Verified 10/08/19 14:23 PMH/Surg Hx/FS Hx/Imm Hx Endocrine/Hematology History: Denies: Hx Diabetes Cardiovascular History: Denies: Hx Hypertension GI History: Denies: Hx Crohn's Disease, Hx Diverticulosis, Hx Gall Bladder Disease, Hx Gastroesophageal Reflux Disease, Hx Gastrointestinal Bleed, Hx Irritable Bowel, Hx Ulcer History: Reports: Other Problems/Disorders - BV Denies: Hx Kidney Infection, Hx Kidney Stones Sensory History: Denies: Hx Legally Blind, Hx Deafness Opthamlomology History: Denies: Hx Eye Prosthesis, Hx Legally Blind EENT History: Denies: Hx Deafness Neurological History: Denies: Hx Dementia - Immunization History Date of Tetanus Vaccine: utd Date of Influenza Vaccine: utd Infectious Disease History: No Infectious Disease History: Denies: Hx Clostridium Difficile, Traveled Outside the [place] in Last 30 Days - Family History Known Family History: Positive: Other - Patient denies relevant FHx, Non- Contributory Negative: Cardiac Disease, Hypertension, Diabetes, Blood Disorder - Social History Alcohol Use: Rare Alcohol Amount: 1-2x per month Hx Substance Use: No Substance Use Type: Reports: Marijuana Substance Use Comment - Amount & Last Used: occasionally when drinking. Hx Tobacco Use: Yes Smoking Status (MU): Former Smoker Have You Smoked in the Last Year: No Review of Systems Constitutional: Negative Eyes: Negative ENT: Negative Cardiovascular: Negative Respiratory: Negative Positive: Abdominal Pain, Nausea Genitourinary: Negative Musculoskeletal: Negative Skin: Negative Neurological: Negative Psychological: Normal All Other Systems Reviewed And Are Negative: Yes Physical Exam - Summary Physical Exam Summary: Tenderness in suprapubic area, right lower quadrant and right upper quadrant. Abdominal exam otherwise unremarkable. Triage Information Reviewed: Yes Vital Signs On Initial Exam: Initial Vitals Temp Pulse Resp BP Pulse Ox 98.2 F 83 20 117/67 99 10/08/19 14:09 10/08/19 14:09 10/08/19 14:09 10/08/19 14:09 10/08/19 14:09 Vital Signs Reviewed: Yes Appearance: Positive: Well-Appearing Skin: Positive: Warm Head/Face: Positive: Normal Head/Face Inspection Eyes: Positive: Normal Neck: Positive: Supple Respiratory/Lung Sounds: Positive: Clear to Auscultation Cardiovascular: Positive: Normal Abdomen Description: Positive: Other: Musculoskeletal: Positive: Normal Neurological: Positive: Normal Psychiatric: Positive: Normal AVPU Assessment: Alert - Do Coma Scale Best Eye Response: 4 - Spontaneous Best Motor Response: 6 - Obeys Commands Best Verbal Response: 5 - Oriented Coma Scale Total: 15 Procedures - Sedation Patient Received Moderate/Deep Sedation with Procedure: No Diagnostics - Vital Signs Vital Signs Temp Pulse Resp BP Pulse Ox 10/08/19 14:09 98.2 F 83 20 117/67 99 - Laboratory Result Diagrams: 10/08/19 14:54 10/08/19 14:54 Lab Statement: Any lab studies that have been ordered have been reviewed, and results considered in the medical decision making process. Abdominal Pain Fem Course/Dx - Course Course Of Treatment: Patient complains of possible 5 weeks confirmed by urine test, lower pelvic pain 1 week, worse in the past 3 days, nausea and vomiting 1 week worsening today with small blood clots noticed today. Also complains of pink color on tissue paper when wiping after urination. Denies fever, cough, sore throat, CP, SOB, diarrhea, pain with urination, vaginal discharge or pain. Medical history is none. Abdominal surgical history is none. . Patient has Nexplanon implant. Vital signs within normal limits. Labs unremarkable. Negative . Negative urine. Transvaginal ultrasound positive for multiple follicles bilaterally. - Diagnoses Provider Diagnoses: Ovarian cyst, Hypokalemia Discharge ED - Sign-Out/Discharge Documenting (check all that apply): Patient Departure - Discharge Plan Condition: Stable Disposition: HOME Prescriptions: Ondansetron ODT TAB* [Zofran 4 MG Odt TAB*] 4 mg PO Q8H PRN 4 Days #14 tab.odt PRN Reason: Nausea Oxycodone HCl 5 mg PO BID 2 Days #4 tablet MDD 2 tabs Patient Education Materials: Ovarian Cyst (ED) Referrals: No Primary Care Phys,NOPCP [Primary Care Provider] - Yojana Goodman MD [Medical Doctor] - Additional Instructions: Alternate ibuprofen 600 mg with Tylenol 650 mg every 3 hours as needed for pain. Use oxycodone for severe pain. Take Zofran as directed for nausea if needed. Follow up with [facility] for further evaluation of ovarian cyst. Return to the ED for any new or worsening symptoms.. - Billing Disposition and Condition Condition: STABLE Disposition: Home - Attestation Statements Provider Attestation: I was available for consult. This patient was seen by the NANCY. The patient was not presented to, seen by, or examined by me. Han Castillo MD
[2019-10-08] MEDS ORDERED: Acetaminophen TAB* 325 MG PO ONE (14:55)
[2019-10-08 15:00] LABS: ABS Basophils 0.1 10^3/ul (0-0.2); ABS Eosinophils 0.1 10^3/ul (0-0.6); ABS Lymphocytes 2.4 10^3/ul (1.0-4.8); ABS Monocytes 0.7 10^3/ul (0-0.8); ABS Neutrophils 7.4 10^3/ul (1.5-7.7); Eosinophil % 0.8 %; Hematocrit 38 % (35-47); Hemoglobin 13.4 g/dL (12.0-16.0); Lymphocyte % 22.2 %; Mean Corpuscular HGB Conc 35 g/dL (31-36); Mean Corpuscular Hemoglobin 32 pg (27-31); Mean Corpuscular Volume 90 fL (80-97); Mean Platelet Volume 8.6 fL (7.4-10.4); Platelet Count 227 10^3/uL (150-450); Red Blood Count 4.23 10^6 /uL (3.70-4.87); Red Cell Distribution Width 13 % (10-15); White Blood Count 10.6 10^3/uL (3.5-10.8)
[2019-10-08 15:13] LABS: Albumin 4.1 g/dL (3.2-5.2); Anion Gap 6 mmol/L (2-11); CO2 Carbon Dioxide 24 mmol/L (22-32); Calcium 9.2 mg/dL (8.6-10.3); Chloride 107 mmol/L (101-111); Potassium 3.3 mmol/L (3.5-5.0); Sodium 137 mmol/L (135-145)
[2019-10-08 15:19] LABS: ALT 9 U/L (7-52); AST 11 U/L (13-39); Albumin/Globulin Ratio 1.2 (1-3); Alkaline Phosphatase 54 U/L (34-104); BUN/Creatinine Ratio 13.8 (8-20); Blood Urea Nitrogen 11 mg/dL (6-24); C Reactive Protein 3.45 mg/L (<8.01); EGFR African American 108.5 (>60); EGFR Non-African American 89.7 (>60); Globulin 3.3 g/dL (2-4); Glucose 88 mg/dL (70-100); Total Protein 7.4 g/dL (6.4-8.9)
[2019-10-08 15:24] LABS: HCG Pregnancy < 0.60 mIU/mL
[2019-10-08 15:37] LABS: Urine Appearance Clear; Urine Bilirubin Negative (Negative); Urine Blood Negative (Negative); Urine Color Yellow; Urine Glucose Negative (Negative); Urine Ketones 1+ (Negative); Urine Nitrite Negative (Negative); Urine Protein Negative (Negative); Urine Specific Gravity 1.012 (1.010-1.030); Urine Urobilinogen Negative (Negative)
[2019-10-08 15:42] LABS: Urine Bacteria Absent (Absent); Urine Red Blood Cell Trace(0-2/hpf) (Absent); Urine Squamous Epithelial Cell Present (Absent); Urine White Blood Cell Trace(0-5/hpf) (Absent)
[2019-10-08] MEDS ORDERED: Ketorolac INJ* 30 MG/ML 1 ML VIAL IV ONE (16:24)
[2019-10-08] MEDS ORDERED: oxyCODONE TAB* 5 MG TAB PO ONE (16:25)
[2019-10-08] MEDS ORDERED: Potassium Chlor TAB* 20 MEQ TAB.ER PO ONE (16:36)
[2019-10-08 16:54] VITALS: BP 102/57
== END 2019-10-08 16:54 | disposition home or self-care (01) ==
LOC: ED 14:07
DX: N83.209 Unspecified ovarian cyst, unspecified side (principal); E87.6 Hypokalemia; Z87.891 Personal history of nicotine dependence
CPT/HCPCS: 36415; 76830; 80053; 81003; 81015; 84702; 85025; 86140; 87086; 96361; 96374; 99283; A9270-GY; J2405

== ENCOUNTER 2019-11-12 18:41 | Inpatient (IN) | payer OTHER ==
[2019-11-12] MEDS ORDERED: Lidocaine 2% VISCOUS* 15 ML UDC PO ONE (19:06)
[2019-11-12] MEDS ORDERED: Ondansetron ODT TAB* 4 MG PO ONE (19:06)
[2019-11-12 19:24] LABS: ABS Basophils 0.1 10^3/ul (0-0.2); ABS Lymphocytes 1.6 10^3/ul (1.0-4.8); ABS Monocytes 1.4 10^3/ul (0-0.8); ABS Neutrophils 13.3 10^3/ul (1.5-7.7); Eosinophil % 0.2 %; Hematocrit 36 % (35-47); Hemoglobin 12.5 g/dL (12.0-16.0); Mean Corpuscular HGB Conc 35 g/dL (31-36); Mean Corpuscular Hemoglobin 31 pg (27-31); Mean Corpuscular Volume 89 fL (80-97); Mean Platelet Volume 8.3 fL (7.4-10.4); Platelet Count 219 10^3/uL (150-450); Red Blood Count 4.04 10^6 /uL (3.70-4.87); Red Cell Distribution Width 14 % (10-15); White Blood Count 16.4 10^3/uL (3.5-10.8)
--- OUTSIDE RECORDS SUMMARY | 2019-11-12 19:30 | XMS REPORT | Continuity of Care Document ---
:1995 External Reference #:[id number] Author Name Aditya Benz MD Address [address] [place] [address] Problems Description No Active Problems Social History Type Date Description Comments Sex Unknown Cigarette Use Current Cigarette Smoker ETOH Use Occasionally consumes alcohol Tobacco Use Start: Unknown Patient is a current smoker, smokes every day Recreational Drug Use Sporadically uses Marijuana Smoking Status Reviewed: 10/20/19 Patient is a current smoker, smokes every day Exercise Type/Frequency Does not exercise Seat Belt/Car Seat Always uses seat belt Allergies, Adverse Reactions, Alerts Description No Known Drug Allergies Medications Active Medications SIG Qnty Indications Ordering Date Provider Ceftriaxone Sodium bring to clinic 1units Aditya Benz, 10/20/2019 250mg for 250mg Im MD Solution Rec injection Doxycycline Hyclate take one tab by 28caps Aditya Benz, 10/20/2019 100mg mouth twice a day MD Capsules x 14 days Metronidazole take one tab by 28tabs Aditya Benz, 10/20/2019 500mg mouth twice a day MD Tablets for 14 days Oxycodone-Acetaminophe take 1-2 tabs by 14tatony Benz, 10/20/2019 n mouth q4-6 hours MD 5-325mg Tablets as needed for pain Nexplanon Unknown 68mg Implant Immunizations CPT Code Status Date Vaccine Lot # [id number] Given 04/14/2017 Tetnus, Diptheria Toxoids And Acellular Pertussis, [id number] PT > 7Yrs Old [id number] Given 07/17/2015 Tetnus, Diptheria Toxoids And Acellular Pertussis, [id number] PT > 7Yrs Old Vital Signs Date Vital Result Comment 10/20/2019 9:31am BP Systolic 128 mmHg BP Diastolic 78 mmHg Height 64 inches 5'4" Weight 182.00 lb BMI (Body Mass Index) 31.2 kg/m2 Last Menstrual Period [id number] 2 Parity 2 02/12/2016 2:29pm BP Systolic 110 mmHg BP Diastolic 66 mmHg Height 65 inches 5'5" Weight 200.00 lb BMI (Body Mass Index) 33.3 kg/m2 Last Menstrual Period [id number] 1 Parity 1 Results Description No Information Available Procedures Description No Information Available Medical Devices Description No Information Available Encounters Type Date Location Provider Dx Diagnosis Office Visit 10/20/2019 [facility] Aditya Benz MD N73.9 Female pelvic 9:30a inflammatory disease, unspecified Assessments Date Code Description Provider 10/20/2019 N73.9 Female pelvic inflammatory disease, unspecified Aditya Benz MD Plan of Treatment Future Appointment(s):10/23/2019 10:00 am - [facility] at [facility]02/12/2016 - TERRI [id number] Secondary amenorrheaComments:if no menses in 2 weeks ov for repeat testIUD info given Radha and Jose LenaFollrachelle up:r/v for IUD consult Functional Status Description No Information Available Mental Status Description No Information Available Referrals Description No Information Available
[2019-11-12 19:39] LABS: ALT 11 U/L (7-52); AST 11 U/L (13-39); Alkaline Phosphatase 70 U/L (34-104); Anion Gap 10 mmol/L (2-11); BUN/Creatinine Ratio 10.1 (8-20); Blood Urea Nitrogen 8 mg/dL (6-24); CO2 Carbon Dioxide 21 mmol/L (22-32); Calcium 9.2 mg/dL (8.6-10.3); Chloride 102 mmol/L (101-111); EGFR African American 110.1 (>60); Globulin 3.9 g/dL (2-4); Glucose 90 mg/dL (70-100); Potassium 3.7 mmol/L (3.5-5.0); Sodium 133 mmol/L (135-145); Total Protein 7.9 g/dL (6.4-8.9)
[2019-11-12 20:09] LABS: Acetaminophen < 15 mcg/mL; Alcohol < 10 mg/dL (<10); Salicylate < 2.50 mg/dL (<30)
[2019-11-12 20:24] LABS: TSH (Thyroid Stimulating Horm) 0.67 mcIU/mL (0.34-5.60)
[2019-11-12] MEDS ORDERED: Ketorolac INJ* 30 MG/ML 1 ML VIAL IM ONE (20:28)
--- NOTE | 2019-11-12 20:33 | ED ---
Throat Pain/Nasal Congestion - HPI Summary HPI Summary: 23 year old female presents with sore throat for the past couple days. States she was diagnosed with strep on Wednesday and has been amoxicillin. She says she just feels awful. She has been having fevers. she admits to sinus condition. She continues to have a sore throat. Admits nausea vomiting diarrhea. She states that she hasn't been able to keep anything down. She states that she has been extreme pain with her throat. On further questioning she states that she is feeling suicidal and wants to drown herself. States she will not due such because of her kids. - History of Current Complaint Chief Complaint: EDMentalHealth Time Seen by Provider: 11/12/19 18:53 - Allergies/Home Medications Allergies/Adverse Reactions: Allergies Allergy/AdvReac Type Severity Reaction Status Date / Time No Known Allergies Allergy Verified 10/08/19 14:23 PMH/Surg Hx/FS Hx/Imm Hx Endocrine/Hematology History: Denies: Hx Diabetes Cardiovascular History: Denies: Hx Hypertension GI History: Denies: Hx Crohn's Disease, Hx Diverticulosis, Hx Gall Bladder Disease, Hx Gastroesophageal Reflux Disease, Hx Gastrointestinal Bleed, Hx Irritable Bowel, Hx Ulcer History: Reports: Other Problems/Disorders - BV Denies: Hx Kidney Infection, Hx Kidney Stones Sensory History: Denies: Hx Eye Prosthesis, Hx Legally Blind, Hx Deafness Opthamlomology History: Denies: Hx Eye Prosthesis, Hx Legally Blind Neurological History: Denies: Hx Dementia Psychiatric History: Denies: Hx Suicide Attempt - Immunization History Date of Tetanus Vaccine: utd Date of Influenza Vaccine: 2018 Immunizations Up to Date: Yes Infectious Disease History: No Infectious Disease History: Denies: Hx Clostridium Difficile, Traveled Outside the [place] in Last 30 Days - Family History Known Family History: Positive: Other - Patient denies relevant FHx, Non- Contributory Negative: Cardiac Disease, Hypertension, Diabetes, Blood Disorder - Social History Alcohol Use: Occasionally Alcohol Amount: 5-7 drinks Hx Substance Use: No Substance Use Type: Reports: Marijuana Substance Use Comment - Amount & Last Used: "last night" Hx Tobacco Use: Yes Smoking Status (MU): Light Every Day Tobacco Smoker Have You Smoked in the Last Year: No Review of Systems Positive: Fever Positive: Sore Throat, Nasal Discharge Positive: Vomiting, Diarrhea, Nausea All Other Systems Reviewed And Are Negative: Yes Physical Exam Triage Information Reviewed: Yes Vital Signs On Initial Exam: Initial Vitals Temp Pulse Resp BP Pulse Ox 99.4 F 119 16 110/75 98 11/12/19 18:46 11/12/19 18:46 11/12/19 18:46 11/12/19 18:46 11/12/19 18:46 Vital Signs Reviewed: Yes Appearance: Positive: Well-Appearing Skin: Positive: Warm, Dry Head/Face: Positive: Normal Head/Face Inspection Eyes: Positive: Normal, EOMI, RAULITO, Conjunctiva Clear ENT: Positive: Pharyngeal erythema, TMs normal, Tonsillar swelling, Uvula midline, Other - soft palate symmetric. Negative: Tonsillar exudate, Trismus, Muffled voice Neck: Positive: Supple, Nontender, No Lymphadenopathy Respiratory/Lung Sounds: Positive: Clear to Auscultation, Breath Sounds Present Cardiovascular: Positive: Normal, RRR Abdomen Description: Positive: Nontender, Soft Bowel Sounds: Positive: Present Musculoskeletal: Positive: Normal Neurological: Positive: Normal Procedures - Sedation Patient Received Moderate/Deep Sedation with Procedure: No Diagnostics - Vital Signs Vital Signs Temp Pulse Resp BP Pulse Ox 11/12/19 18:46 99.4 F 119 16 110/75 98 - Laboratory Lab Results: Lab Results 11/12/19 11/12/19 Range/Units 19:17 19:17 WBC 16.4 H (3.5-10.8) 10^3/uL RBC 4.04 (3.70-4.87) 10^6 /uL Hgb 12.5 (12.0-16.0) g/dL Hct 36 (35-47) % MCV 89 (80-97) fL MCH 31 (27-31) pg MCHC 35 (31-36) g/dL RDW 14 (10-15) % Plt Count 219 (150-450) 10^3/uL MPV 8.3 (7.4-10.4) fL Neut % (Auto) 81.0 % Lymph % (Auto) 10.0 % Dickinson % (Auto) 8.3 % Eos % (Auto) 0.2 % Baso % (Auto) 0.5 % Absolute Neuts (auto) 13.3 H (1.5-7.7) 10^3/ul Absolute Lymphs (auto) 1.6 (1.0-4.8) 10^3/ul Absolute Monos (auto) 1.4 H (0-0.8) 10^3/ul Absolute Eos (auto) 0.0 (0-0.6) 10^3/ul Absolute Basos (auto) 0.1 (0-0.2) 10^3/ul Absolute Nucleated RBC 0.0 10^3/ul Nucleated RBC % 0.0 Sodium 133 L (135-145) mmol/L Potassium 3.7 (3.5-5.0) mmol/L Chloride 102 (101-111) mmol/L Carbon Dioxide 21 L (22-32) mmol/L Anion Gap 10 (2-11) mmol/L BUN 8 (6-24) mg/dL Creatinine 0.79 (0.51-0.95) mg/dL Est GFR ( Amer) 110.1 (>60) Est GFR (Non-Af Amer) 91.0 (>60) BUN/Creatinine Ratio 10.1 (8-20) Glucose 90 (70-100) mg/dL Calcium 9.2 (8.6-10.3) mg/dL Total Bilirubin 0.50 (0.2-1.0) mg/dL AST 11 L (13-39) U/L ALT 11 (7-52) U/L Alkaline Phosphatase 70 (34-104) U/L Total Protein 7.9 (6.4-8.9) g/dL Albumin 4.0 (3.2-5.2) g/dL Globulin 3.9 (2-4) g/dL Albumin/Globulin Ratio 1.0 (1-3) TSH 0.67 (0.34-5.60) mcIU/mL Salicylates < 2.50 (<30) mg/dL Acetaminophen < 15 mcg/mL Serum Alcohol < 10 (<10) mg/dL Monoscreen Negative (Negative) Result Diagrams: 11/12/19 19:17 11/12/19 19:17 Lab Statement: Any lab studies that have been ordered have been reviewed, and results considered in the medical decision making process. Re-Evaluation - Re-Evaluation First Eval Re-Evaluation Time: 20:34 Change: Improved EENT Course/Dx - Course Course Of Treatment: 23 year old female presents with sore throat for the past couple days. States she was diagnosed with strep on Wednesday and has been amoxicillin. She says she just feels awful. She has been having fevers. she admits to sinus condition. She continues to have a sore throat. Admits nausea vomiting diarrhea. She states that she hasn't been able to keep anything down. She states that she has been extreme pain with her throat. On further questioning she states that she is feeling suicidal and wants to drown herself. States she will not due such because of her kids. On exam pharynx is erythematous. Uvula midline. Tonsils swelling noted. Dickinson is negative. White blood count is 16. Gave lidocaine and Decadron and Toradol and feeling better. After mental health evaluation patient will be admitted. - Differential Diagnoses Differential Diagnoses: Pharyngitis, Tonsilitis, URI/Bronchitis - Diagnoses Provider Diagnoses: Streptococcal sore throat, Mood disorder Discharge ED - Sign-Out/Discharge Documenting (check all that apply): Patient Departure - Discharge Plan Condition: Stable Disposition: PSYCHIATRIC FACILITY-[facility] Referrals: No Primary Care Phys,NOPCP [Primary Care Provider] - - Billing Disposition and Condition Condition: STABLE Disposition: Psychiatric Facility [facility]
[2019-11-12] MEDS ORDERED: Dexamethasone TAB* 4 MG PO ONE (20:34)
[2019-11-12 22:11] LABS: Urine Appearance Cloudy; Urine Bacteria Absent (Absent); Urine Bilirubin Negative (Negative); Urine Blood Negative (Negative); Urine Color Yellow; Urine Glucose Negative (Negative); Urine Ketones 2+ (Negative); Urine Nitrite Negative (Negative); Urine Protein Negative (Negative); Urine Red Blood Cell Absent (Absent); Urine Specific Gravity 1.029 (1.010-1.030); Urine Urobilinogen Negative (Negative); Urine White Blood Cell Absent (Absent)
[2019-11-12 22:25] LABS: Urine Benzodiazepine Screen None Detected (None Detect); Urine Opiates Screen None Detected (None Detect)
[2019-11-13] MEDS ORDERED: Amoxicillin PO (*) 250 MG CAP PO ONE (00:11)
[2019-11-13] MEDS ORDERED: Acetaminophen TAB* 325 MG PO PRN (04:20)
[2019-11-13] MEDS ORDERED: Al Hydrox/Mg Hydrox/Simet LIQ* 30 ML UDC PO PRN (04:20)
[2019-11-13] MEDS ORDERED: Vitamin THERAPEUTIC TAB PO SCH (09:00)
[2019-11-13 09:13] VITALS: BP 107/93
[2019-11-13] MEDS ORDERED: Nicotine* 2MG (FRUIT FLAVOR) GUM PO PRN (10:10)
[2019-11-13 12:27] LABS: Rapid Strep Molecular Negative (Negative)
--- NOTE | 2019-11-13 13:48 | PN ---
BSU: Group Therapy Note - Service Type Service Type: [id number] Group Psychotherapy - Cognitive Behavioral Group Therapy ( CBT):Patient was attentive and participatory in CBT programming this morning, and remained in good behavioral control. Patient expressed positive insights regarding relevant treatment interventions and goals.
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
[2019-11-13] MEDS ORDERED: Gabapentin CAP(*) 100 MG PO SCH (21:00)
== END 2019-11-13 15:35 | disposition home or self-care (01) | DRG 754 ==
LOC: ED 18:41 → BSU 22:45
PROVIDERS: ADMIT Psychiatry & Neurology Psychiatry; ATTEND Psychiatry & Neurology Psychiatry
DX: F32.9 Major depressive disorder, single episode, unspecified (principal); R45.851 Suicidal ideations; F43.22 Adjustment disorder with anxiety
CPT/HCPCS: 36415; 80053; 80307; 80320; 80329; 81003; 81015; 84443; 85025; 86308; 87070; 87086; 87651; 90853; 96372; 99238; 99285; A9270-GY; G0480; J1885; J8540

== ENCOUNTER 2020-01-01 17:31 | Emergency (ER) | payer OTHER ==
[2020-01-01] MEDS ORDERED: Ondansetron ODT TAB* 4 MG PO ONE (18:30)
--- NOTE | 2020-01-01 18:35 | ED ---
Influenza-Like Illness - HPI Summary HPI Summary: 24 year old female presents with flu like illness for the past 3 days. She states that she's had a fever and muscle aches. she has had nausea vomiting diarrhea. she denies any abdominal pain. she admits to occasional cough. She denies any chest pain or shortness of breath. "she admits to sinus congestion. Has taken dayquil and nyquil for her symptoms. Has no medical conditions. - History of Current Complaint Chief Complaint: EDFluSymptoms Time Seen by Provider: 01/01/20 18:15 - Allergy/Home Medications Allergies/Adverse Reactions: Allergies Allergy/AdvReac Type Severity Reaction Status Date / Time No Known Allergies Allergy Verified 10/08/19 14:23 PMH/Surg Hx/FS Hx/Imm Hx Endocrine/Hematology History: Denies: Hx Diabetes Cardiovascular History: Denies: Hx Hypertension Respiratory History: Denies: Hx Asthma, Hx Chronic Obstructive Pulmonary Disease (COPD) GI History: Denies: Hx Crohn's Disease, Hx Diverticulosis, Hx Gall Bladder Disease, Hx Gastroesophageal Reflux Disease, Hx Gastrointestinal Bleed, Hx Irritable Bowel, Hx Ulcer History: Reports: Other Problems/Disorders - BV Denies: Hx Kidney Infection, Hx Kidney Stones Sensory History: Denies: Hx Eye Prosthesis, Hx Legally Blind, Hx Deafness Opthamlomology History: Denies: Hx Eye Prosthesis, Hx Legally Blind Neurological History: Denies: Hx Dementia Psychiatric History: Denies: Hx Suicide Attempt - Immunization History Date of Tetanus Vaccine: utd Date of Influenza Vaccine: 2019 Infectious Disease History: No Infectious Disease History: Denies: Hx Clostridium Difficile, Traveled Outside the [place] in Last 30 Days - Family History Known Family History: Positive: Other - Patient denies relevant FHx, Non- Contributory Negative: Cardiac Disease, Hypertension, Diabetes, Blood Disorder - Social History Alcohol Use: Occasionally Alcohol Amount: 5-7 drinks Hx Substance Use: No Substance Use Type: Reports: Marijuana Substance Use Comment - Amount & Last Used: "last night" Hx Tobacco Use: Yes Smoking Status (MU): Light Every Day Tobacco Smoker Have You Smoked in the Last Year: No Review of Systems Positive: Fever, Chills Positive: Nasal Discharge Negative: Chest Pain Positive: Shortness Of Breath, Cough Positive: Abdominal Pain, Vomiting, Diarrhea, Nausea All Other Systems Reviewed And Are Negative: Yes Physical Exam Triage Information Reviewed: Yes Vital Signs On Initial Exam: Initial Vitals Temp Pulse Resp BP Pulse Ox 100.2 F 97 16 106/66 98 01/01/20 17:32 01/01/20 17:32 01/01/20 17:32 01/01/20 17:32 01/01/20 17:32 Vital Signs Reviewed: Yes Appearance: Positive: Well-Appearing Skin: Positive: Warm, Dry Head/Face: Positive: Normal Head/Face Inspection Eyes: Positive: Normal, EOMI, RAULITO, Conjunctiva Clear ENT: Positive: Pharynx normal, TMs normal Respiratory/Lung Sounds: Positive: Clear to Auscultation, Breath Sounds Present Cardiovascular: Positive: Normal, RRR Procedures - Sedation Patient Received Moderate/Deep Sedation with Procedure: No Diagnostics - Vital Signs Vital Signs Temp Pulse Resp BP Pulse Ox 01/01/20 17:32 100.2 F 97 16 106/66 98 - Laboratory Lab Statement: Any lab studies that have been ordered have been reviewed, and results considered in the medical decision making process. Re-Evaluation - Re-Evaluation First Eval Re-Evaluation Time: 19:09 Change: Improved Comment: feeling better Flu Symptom Course/Dx - Course Course Of Treatment: 24 year old female presents with flu like illness for the past 3 days. She states that she's had a fever and muscle aches. she has had nausea vomiting diarrhea. she denies any abdominal pain. she admits to occasional cough. She denies any chest pain or shortness of breath. She admits to sinus congestion. Has taken dayquil and nyquil for her symptoms. Has no medical conditions. On exam pharynx normal. Lungs CTA. abd soft nontender. Flu is positive for flu b. Zofran helped with symptoms. will discharge on zofran. patient understand and agrees with plan. - Diagnoses Differential Diagnosis/HQI/PQRI: Positive: Bronchitis, Influenza, Pneumonia Provider Diagnoses: Influenza Discharge ED - Sign-Out/Discharge Documenting (check all that apply): Patient Departure - Discharge Plan Condition: Good Disposition: HOME Prescriptions: Ondansetron ODT TAB* [Zofran 4 MG Odt TAB*] 4 mg PO Q6H PRN #12 tab.odt PRN Reason: Nausea Patient Education Materials: Influenza (ED) Forms: *Work Release Referrals: No Primary Care Phys,NOPCP [Primary Care Provider] - Additional Instructions: Take Tylenol and ibuprofen for muscle aches and fever every 6 hours take zofran every 6 hours for nausea Saline rinse can be used multiple times a day for nasal congestion Drink plenty of fluids Follow up with primary within 5 days Return to ED if develop any new or worsening symptoms - Billing Disposition and Condition Condition: GOOD Disposition: Home - Attestation Statements Provider Attestation: I was available for consultation for this patient. I did not evaluate the patient or participate in any medical decision making or disposition decisions unless I am specifically named in the chart as having consulted on the patient. If I have consulted on the patient, please see my own ED note on the patient encounter. Dilip Uriarte MD
[2020-01-01 19:01] LABS: Influenza B Molecular POSITIVE (Negative)
[2020-01-01 19:18] VITALS: BP 109/78
== END 2020-01-01 19:18 | disposition home or self-care (01) ==
LOC: ED 17:31
DX: J11.1 Influenza due to unidentified influenza virus with other respiratory manifestations (principal); R50.9 Fever, unspecified; R05 Cough; F17.210 Nicotine dependence, cigarettes, uncomplicated; R11.2 Nausea with vomiting, unspecified; R10.9 Unspecified abdominal pain
CPT/HCPCS: 99282; A9270-GY

== ENCOUNTER 2021-05-20 08:14 | Inpatient (IN) ==
[2021-05-20] MEDS ORDERED: Lactated Ringers 1000 ml BAG 1,000 ML IV ONE ×2 (09:25→16:53)
[2021-05-20] MEDS ORDERED: Buffered Lidocaine 1% SYRIN 1 ml INTRADERM ONE (09:25)
[2021-05-20 09:43] LABS: ABS Eosinophils 0.1 10^3/ul (0-0.6); ABS Lymphocytes 2.3 10^3/ul (1.0-4.8); ABS Neutrophils 8.2 10^3/ul (1.5-7.7); Eosinophil % 0.7 %; Hematocrit 36 % (35-47); Lymphocyte % 19.4 %; Mean Corpuscular HGB Conc 34 g/dL (31-36); Mean Corpuscular Hemoglobin 31 pg (27-31); Mean Corpuscular Volume 93 fL (80-97); Mean Platelet Volume 9.7 fL (7.4-10.4); Platelet Count 243 10^3/uL (150-450); Red Blood Count 3.84 10^6 /uL (3.70-4.87); Red Cell Distribution Width 14 % (10-15); White Blood Count 11.6 10^3/uL (3.5-10.8)
[2021-05-20] MEDS ORDERED: Lactated Ringers 1000 ml BAG 1,000 ML IV SCH ×3 (10:00→17:00)
[2021-05-20] MEDS ORDERED: Oxytocin in LR 20 UNITS/1,000 ML BAG IVPB SCH ×2 (10:00→19:00)
[2021-05-20 10:24] LABS: Urine Benzodiazepine Screen None Detected (None Detect); Urine Cannabinoids Screen None Detected (None Detect); Urine Opiates Screen None Detected (None Detect)
[2021-05-20] MEDS ORDERED: OBEPIDURAL 250 ML EPIDURAL ONE (16:18)
[2021-05-20] MEDS ORDERED: EPHEDrine (Pressors) 50 MG/ML VIAL IV PUSH PRN ×2 (16:53)
[2021-05-20] MEDS ORDERED: Sodium Citrate/Citric Acid LIQ 15 ML UDC PO PRN (16:53)
[2021-05-20] MEDS ORDERED: Lactated Ringers 1000 ml BAG 500 ML IV PRN (16:53)
[2021-05-20] MEDS ORDERED: Phenylephrine 40 mcg/mL 10mL (400mcg) SYRINGE IV PUSH PRN (16:53)
[2021-05-20] MEDS ORDERED: OBEPIDURAL 250 ML EPIDURAL SCH (17:00)
[2021-05-20] MEDS: Phenylephrine 40 mcg/mL 10mL (400mcg) SYRINGE IV PUSH PRN ×3 (17:51→17:58)
[2021-05-20] MEDS ORDERED: Witch Hazel PAD JAR TOPICAL PRN (18:52)
[2021-05-20] MEDS ORDERED: Glycerin ADULT 2.4 gm SUPP PR PRN (18:52)
[2021-05-20] MEDS ORDERED: Dibucaine 1% OINT 28.35 GM TUBE PR PRN (18:52)
[2021-05-20] MEDS ORDERED: Ammonia Inhalant 1 EA AMP ONE (20:25)
[2021-05-21 06:19] LABS: ABS Eosinophils 0.1 10^3/ul (0-0.6); ABS Lymphocytes 2.4 10^3/ul (1.0-4.8); ABS Neutrophils 11.4 10^3/ul (1.5-7.7); Eosinophil % 0.5 %; Hematocrit 31 % (35-47); Hemoglobin 10.9 g/dL (12.0-16.0); Lymphocyte % 16.2 %; Mean Corpuscular HGB Conc 35 g/dL (31-36); Mean Corpuscular Hemoglobin 32 pg (27-31); Mean Corpuscular Volume 92 fL (80-97); Mean Platelet Volume 9.2 fL (7.4-10.4); Platelet Count 187 10^3/uL (150-450); Red Blood Count 3.39 10^6 /uL (3.70-4.87); Red Cell Distribution Width 14 % (10-15); White Blood Count 14.9 10^3/uL (3.5-10.8)
[2021-05-21] MEDS ORDERED: Measles, Mumps,Rubella VACC 0.5 ML/VIAL SUBCUT ONE (09:00)
[2021-05-21 16:21] VITALS: BP 111/71
== END 2021-05-21 19:13 | disposition home or self-care (01) | DRG 560 ==
LOC: MCHOBOUT 08:14 → MCHOB 09:26
PROVIDERS: ADMIT Midwife; ATTEND Midwife